=== PATIENT | female | born 1940 | race Caucasian/White ===

== ENCOUNTER 2017-05-10 00:29 | Emergency (ER) | payer MEDICARE, OTHER ==
[2017-05-10 01:30] VITALS: BP 158/76
--- NOTE | 2017-05-10 01:42 | EDM.PDOC ---
ED HPI GENERAL MEDICAL PROBLEM - General Chief Complaint: Respiratory Problem Stated Complaint: SOB Time Seen by Provider: 05/10/17 01:41 Source of Information: Reports: Patient History Limitations: Reports: No Limitations - History of Present Illness INITIAL COMMENTS - FREE TEXT/NARRATIVE: 76 years old female patient presented with chief complaint of a cannot take a deep breath. She stated that she is not feeling short of breath but she cannot take deep breath. Denies any chest pain. Has been feeling this way since yesterday. Previous history of pneumonia and asthma. Denies any cough or fever. Denies any wheezing. Denies abdominal pain diarrhea or constipation. No urinary symptom. Denies any pain or swelling in her legs. denies pain Pain Score (Numeric/FACES): 0 - Related Data Allergies Allergy/AdvReac Type Severity Reaction Status Date / Time No Known Allergies Allergy Verified 05/10/17 01:21 Home Meds: Home Meds Insulin Glarg,Human.Rec.Analog [Lantus Solostar] 20 units SQ ACBREAKFAST [History] Metoprolol Tartrate [Lopressor] 25 mg PO BID 06/16/14 [History] PARoxetine HCl [Paroxetine HCl] 30 mg PO DAILY 06/16/14 [History] Simvastatin 20 mg PO BEDTIME 06/16/14 [History] metFORMIN [Glucophage] 1,000 mg PO BID 06/16/14 [History] Insulin Aspart [Novolog Flexpen] 8 units SUBCUT BEDTIME 11/27/15 [History] Allopurinol [Zyloprim] 50 mg PO DAILY 05/10/17 [History] Past Medical History HEENT History: Reports: Impaired Vision Cardiovascular History: Reports: Heart Murmur, High Cholesterol, Hypertension, SOB on Exertion Respiratory History: Reports: Asthma, Bronchitis, Recurrent Gastrointestinal History: Reports: Colon Polyp, Diverticulosis Other Gastrointestinal History: Last BM - 03/14/16 Genitourinary History: Reports: 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: Musculoskeletal History: Reports: Fracture, Osteoarthritis, Other (See Below) Other Musculoskeletal History: tibal fracture, screws placed Neurological History: Reports: Concussion Psychiatric History: Reports: Anxiety Endocrine/Metabolic History: Reports: Diabetes, Type I Oncologic (Cancer) History: Reports: Breast - Infectious Disease History Infectious Disease History: Reports: Chicken Pox - Past Surgical History HEENT Surgical History: Reports: Other (See Below) Other HEENT Surgeries/Procedures: dentures Female Surgical History: Reports: Breast Biopsy, Mastectomy Social & Family History - Family History Cardiac: Reports: Heart Failure - Tobacco Use Smoking Status *Q: Former Smoker Years of Tobacco use: 28 Packs/Tins Daily: 1 Used Tobacco, but Quit: Yes Month Tobacco Last Used: March 1988 Second Hand Smoke Exposure: No - Caffeine Use Caffeine Use: Reports: Coffee - Alcohol Use Days Per Week of Alcohol Use: 0 Number of Drinks Per Day: 1 Total Drinks Per Week: 0 - Recreational Drug Use Recreational Drug Use: No ED ROS GENERAL - Review of Systems Review Of Systems: ROS reveals no pertinent complaints other than HPI. ED EXAM, GENERAL - Physical Exam Exam: See Below Exam Limited By: No Limitations General Appearance: Alert, WD/WN, No Apparent Distress Ear Exam: Bilateral Ear: Auricle Normal, Canal Normal, TM normal Head: Atraumatic, Normocephalic Neck: Normal Inspection, Supple, Non-Tender, Full Range of Motion Respiratory/Chest: No Respiratory Distress, Lungs Clear, Normal Breath Sounds, No Accessory Muscle Use, Chest Non-Tender. No: Decreased Breath Sounds, Crackles, Rales, Rhonchi, Wheezing, Stridor, Retractions, Prolonged Expiration Cardiovascular: Normal Peripheral Pulses, Regular Rate, Rhythm, No Edema, No Gallop, No JVD, No Murmur, No Rub GI/Abdominal: Normal Bowel Sounds, Soft, Non-Tender, No Organomegaly, No Distention, No Abnormal Bruit, No Mass Back Exam: Normal Inspection, Full Range of Motion, NT Extremities: Normal Inspection, Normal Range of Motion, Non-Tender, Normal Capillary Refill, No Pedal Edema Neurological: Alert, Oriented, CN II-XII Intact, Normal Cognition, Normal Gait, Normal Reflexes, No Motor/Sensory Deficits Psychiatric: Normal Affect, Normal Mood Skin Exam: Warm, Dry, Intact, Normal Color, No Rash Course - Vital Signs Last Recorded V/S: Last Vital Signs Temp 36.1 C 05/10/17 01:28 Pulse 81 05/10/17 01:28 Resp 20 05/10/17 01:28 BP 158/76 H 05/10/17 01:28 Pulse Ox 97 05/10/17 01:28 - Orders/Labs/Meds Orders: Active Orders 24 hr Category Date Time Status Chest 2V [CR] Urgent Exams 05/10/17 01:52 Taken Labs: Laboratory Tests 05/10/17 05/10/17 Range/Units 02:00 02:00 WBC 5.8 (4.5-11.0) K/uL RBC 3.33 (3.30-5.50) M/uL Hgb 10.5 L (12.0-15.0) g/dL Hct 31.1 L (36.0-48.0) % MCV 93 (80-98) fL MCH 32 H (27-31) pg MCHC 34 (32-36) % Plt Count 158 (150-400) K/uL Neut % (Auto) 67 H (36-66) % Lymph % (Auto) 20 L (24-44) % [place] % (Auto) 10 H (2-6) % Eos % (Auto) 2 (2-4) % Baso % (Auto) 1 (0-1) % Sodium 139 L (140-148) mmol/L Potassium 3.6 (3.6-5.2) mmol/L Chloride 101 (100-108) mmol/L Carbon Dioxide 28 (21-32) mmol/L Anion Gap 13.6 (5.0-14.0) mmol/L BUN 34 H (7-18) mg/dL Creatinine 1.2 H (0.6-1.0) mg/dL Est Cr Clr Drug Dosing 34.02 mL/min Estimated GFR (MDRD) 44 L (>60) Glucose 175 H (74-106) mg/dL Calcium 9.3 (8.5-10.1) mg/dL Troponin I 0.034 (0.000-0.056) ng/mL Meds: Medications Discontinued Medications Generic Name Dose Route Start Last Admin Trade Name Freq PRN Reason Stop Dose Admin Lorazepam 0.5 mg 05/10/17 01:53 05/10/17 02:06 Ativan IM 05/10/17 01:54 0.5 mg ONETIME ONE Administration - Re-Assessments/Exams Free Text/Narrative Re-Assessment/Exam: 05/10/17 01:59 Patient was seen and examined shortly after arrival. Stable. Exam is completely unremarkable. Possible anxiety. Was given 0.5 mg IM Ativan. Lab and imaging reviewed with the patient. No significant abnormalities. Symptom markedly improved after 25 mg of IM Ativan. He stated that she feels fantastic. Her warts. Symptom completely resolved. Feels this is most likely anxiety. Patient stable for discharge. 05/10/17 03:00 Departure - Departure Time of Disposition: 03:01 Disposition: Home, Self-Care 01 Condition: Good Clinical Impression: Anxiety - Discharge Information Referrals: John Meza MD [Primary Care Provider] - Forms: ED Department Discharge Additional Instructions: Continue home meds Come back symptom motion - My Orders Last 24 Hours: My Active Orders 05/10/17 01:52 Chest 2V [CR] Urgent - Assessment/Plan Last 24 Hours: My Active Orders 05/10/17 01:52 Chest 2V [CR] Urgent Plan: Continue home meds Come back symptom motion
[2017-05-10] MEDS ORDERED: LORazepam 2 MG/ML MDV IM ONE (01:53)
--- NOTE | 2017-05-10 09:10 | CR ---
Chest 2V HISTORY: Shortness of breath. COMPARISON: 03/15/2016. FINDINGS: Hyperinflation. Cardiac size is normal. No acute infiltrates. Old right-sided rib injuries. No effusions or acute congestive change.
== END 2017-05-10 03:12 | disposition home or self-care (01) ==
LOC: JP.ED 00:29
DX: F41.9 Anxiety disorder, unspecified (principal); I10 Essential (primary) hypertension; E10.9 Type 1 diabetes mellitus without complications; J45.909 Unspecified asthma, uncomplicated; Z87.01 Personal history of pneumonia (recurrent); Z79.899 Other long term (current) drug therapy
CPT/HCPCS: 36415; 71020; 80048; 84484; 85025; 96372; 99285; J2060; 99283

== ENCOUNTER 2017-12-01 14:21 | Emergency (ER) | payer MEDICARE, OTHER ==
--- NOTE | 2017-12-01 14:56 | EDM.PDOC ---
ED HPI GENERAL MEDICAL PROBLEM - General Chief Complaint: Respiratory Problem Stated Complaint: RESPIRATORY/SOB Time Seen by Provider: 12/01/17 15:45 Source of Information: Reports: Patient, Family, Old Records, RN History Limitations: Reports: No Limitations - History of Present Illness INITIAL COMMENTS - FREE TEXT/NARRATIVE: 77 yo female with no CAD hx presents with SOB and upper abdominal pain that began earlier today. Most of these sx's are better, but she still has some SOB. No recent calf pain or fever. Has a hx of pneumonia and this feels like that. Not coughing. Has nausea and vomiting. No bleeding. Here with family from home. The pain sx's she reports today have been coming and going for several days, worse last night, this morning, and again at noon today. Pain mostly gone on arrival. 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) - Related Data Allergies Allergy/AdvReac Type Severity Reaction Status Date / Time No Known Allergies Allergy Verified 05/10/17 01:21 Home Meds: Home Meds Insulin Glarg,Human.Rec.Analog [Lantus Solostar] 20 units SQ ACBREAKFAST [History] Metoprolol Tartrate [Lopressor] 25 mg PO BID 06/16/14 [History] PARoxetine HCl [Paroxetine HCl] 30 mg PO DAILY 06/16/14 [History] Simvastatin 20 mg PO BEDTIME 06/16/14 [History] metFORMIN [Glucophage] 1,000 mg PO BID 06/16/14 [History] Insulin Aspart [Novolog Flexpen] 8 units SUBCUT BEDTIME 11/27/15 [History] Allopurinol [Zyloprim] 200 mg PO DAILY 05/10/17 [History] oxyCODONE 5 mg PO ASDIRECTED PRN 12/01/17 [History] Past Medical History HEENT History: Reports: Impaired Vision Cardiovascular History: Reports: Heart Murmur, High Cholesterol, Hypertension, SOB on Exertion Respiratory History: Reports: Asthma, Bronchitis, Recurrent Gastrointestinal History: Reports: Colon Polyp, Diverticulosis Other Gastrointestinal History: Last BM - 03/14/16 Genitourinary History: 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: Musculoskeletal History: Reports: Fracture, Osteoarthritis, Other (See Below) Other Musculoskeletal History: tibal fracture, screws placed Neurological History: Reports: Concussion Psychiatric History: Reports: Anxiety Endocrine/Metabolic History: Reports: Diabetes, Type I Oncologic (Cancer) History: Reports: Breast - Infectious Disease History Infectious Disease History: Reports: Chicken Pox - Past Surgical History HEENT Surgical History: Reports: Other (See Below) Other HEENT Surgeries/Procedures: dentures Female Surgical History: Reports: Breast Biopsy, Mastectomy Social & Family History - Family History Cardiac: Reports: Heart Failure - Tobacco Use Smoking Status *Q: Never Smoker Years of Tobacco use: 28 Packs/Tins Daily: 1 Used Tobacco, but Quit: Yes Month/Year Tobacco Last Used: March 1988 Second Hand Smoke Exposure: No - Caffeine Use Caffeine Use: Reports: Coffee - Alcohol Use Days Per Week of Alcohol Use: 0 Number of Drinks Per Day: 1 Total Drinks Per Week: 0 - Recreational Drug Use Recreational Drug Use: No ED ROS GENERAL - Review of Systems Review Of Systems: See Below Constitutional: Reports: No Symptoms HEENT: Reports: No Symptoms Respiratory: Reports: Shortness of Breath. Denies: Wheezing, Pleuritic Chest Pain, Cough, Sputum Cardiovascular: Reports: Chest Pain GI/Abdominal: Reports: Abdominal Pain (upper abdomen), Diarrhea, Nausea, Vomiting. Denies: Black Stool, Bloody Stool, Constipation, Distension : Reports: No Symptoms Musculoskeletal: Reports: No Symptoms Skin: Reports: No Symptoms Neurological: Reports: No Symptoms Psychiatric: Reports: No Symptoms ED EXAM, GENERAL - Physical Exam Exam: See Below Exam Limited By: No Limitations General Appearance: Alert, WD/WN, No Apparent Distress Eye Exam: Bilateral Eye: Normal Inspection Ears: Normal External Exam, Normal Canal, Hearing Grossly Normal, Normal TMs Ear Exam: Bilateral Ear: Auricle Normal, Canal Normal, TM normal Nose: Normal Inspection, Normal Mucosa, No Blood Throat/Mouth: Normal Inspection, Normal Lips, Normal Oropharynx, Normal Voice, No Airway Compromise Head: Atraumatic, Normocephalic Neck: Normal Inspection, Supple Respiratory/Chest: No Respiratory Distress, Lungs Clear, Normal Breath Sounds, No Accessory Muscle Use Cardiovascular: Regular Rate, Rhythm, No Edema GI/Abdominal: Normal Bowel Sounds, Soft, Non-Tender, No Distention Back Exam: Normal Inspection. No: CVA Tenderness (R), CVA Tenderness (L) Extremities: Normal Inspection, Normal Range of Motion, Non-Tender, No Pedal Edema Neurological: Alert, Oriented, CN II-XII Intact, Normal Cognition, No Motor/ Sensory Deficits Psychiatric: Normal Affect, Normal Mood Skin Exam: Warm, Dry, Intact, Normal Color, No Rash Lymphatic: No Adenopathy EKG INTERPRETATION EKG Date: 12/01/17 Time: 14:45 Rhythm: NSR Rate (Beats/Min): 122 [place]: Normal P-Wave: Present QRS: Normal ST-T: Depressed (multiple leads) QT: Normal Comparison: NA - No Prior EKG (abnormal EKG) Course - Vital Signs Text/Narrative:: 2nd IV ordered for an increase in HR and CP: Q's in V1-V3, deeper ST depression in inf leads and ant leads Dr. Gates recontacted to update change in patient's condition. Will change mode of transfer to air. Last Recorded V/S: Last Vital Signs Temp 36.2 C 12/01/17 16:57 Pulse 105 H 12/01/17 17:01 Resp 22 H 12/01/17 16:57 BP 129/72 12/01/17 17:01 Pulse Ox 96 12/01/17 16:57 - Orders/Labs/Meds Orders: Active Orders 24 hr Category Date Time Status Cardiac Monitoring [RC] .As Directed Care 12/01/17 15:03 Active EKG Documentation Completion [RC] ASDIRECTED Care 12/01/17 14:33 Active EKG Documentation Completion [RC] ASDIRECTED Care 12/01/17 16:38 Active UA W/MICROSCOPIC [URIN] Stat Lab 12/01/17 15:01 Ordered Heparin Sodium/D5W [Heparin 25,000 Units in D5W 500 ML] Med 12/01/17 16:30 Active 25,000 units in 500 ml IV TITRATE Metoprolol Tartrate [Lopressor] Med 12/01/17 17:06 Once 5 mg IVPUSH ONETIME ONE Nitroglycerin/D5W [Nitroglycerin 25 MG/D5W 250 ML] Med 12/01/17 16:45 Active 25 mg in 250 ml IV TITRATE EKG 12 Lead [EK] Routine Ther 12/01/17 14:33 Ordered EKG 12 Lead [EK] Routine Ther 12/01/17 16:38 Ordered Medication Orders Heparin Sodium/Dextrose (Heparin 25,000 Units In D5w 500 Ml) 25,000 units in 500 mls @ 18 mls/hr IV TITRATE BAO Last Admin: 12/01/17 17:04 Dose: 900 units/hr, 18 mls/hr Nitroglycerin/Dextrose (Nitroglycerin 25 Mg/D5w 250 Ml) 25 mg in 250 mls @ 6 mls/hr IV TITRATE BAO; Protocol Last Admin: 12/01/17 16:39 Dose: 10 mcg/min, 6 mls/hr Labs: Laboratory Tests 12/01/17 12/01/17 12/01/17 Range/Units 15:02 15:02 15:02 WBC 8.7 (4.5-11.0) K/uL RBC 3.92 (3.30-5.50) M/uL Hgb 12.6 D (12.0-15.0) g/dL Hct 36.8 (36.0-48.0) % MCV 94 (80-98) fL MCH 32 H (27-31) pg MCHC 34 (32-36) % Plt Count 209 (150-400) K/uL D-Dimer, Quantitative 340 (0.0-400.0) ng/mL Sodium 138 L (140-148) mmol/L Potassium 4.4 (3.6-5.2) mmol/L Chloride 100 (100-108) mmol/L Carbon Dioxide 20 L (21-32) mmol/L Anion Gap 22.4 H (5.0-14.0) mmol/L BUN 19 H (7-18) mg/dL Creatinine 1.3 H (0.6-1.0) mg/dL Est Cr Clr Drug Dosing 31.61 mL/min Estimated GFR (MDRD) 40 L (>60) Glucose 266 H (74-106) mg/dL Calcium 9.4 (8.5-10.1) mg/dL Total Bilirubin 0.7 D (0.2-1.0) mg/dL AST 33 (15-37) U/L ALT 40 (12-78) U/L Alkaline Phosphatase 66 (46-116) U/L Troponin I 1.248 H* (0.000-0.056) ng/mL NT-Pro-B Natriuret Pep (5-450) pg/mL Total Protein 6.8 (6.4-8.2) g/dL Albumin 3.5 (3.4-5.0) g/dL Globulin 3.3 (2.3-3.5) g/dL Albumin/Globulin Ratio 1.1 L (1.2-2.2) 12/01/17 Range/Units 16:25 WBC (4.5-11.0) K/uL RBC (3.30-5.50) M/uL Hgb (12.0-15.0) g/dL Hct (36.0-48.0) % MCV (80-98) fL MCH (27-31) pg MCHC (32-36) % Plt Count (150-400) K/uL D-Dimer, Quantitative (0.0-400.0) ng/mL Sodium (140-148) mmol/L Potassium (3.6-5.2) mmol/L Chloride (100-108) mmol/L Carbon Dioxide (21-32) mmol/L Anion Gap (5.0-14.0) mmol/L BUN (7-18) mg/dL Creatinine (0.6-1.0) mg/dL Est Cr Clr Drug Dosing mL/min Estimated GFR (MDRD) (>60) Glucose (74-106) mg/dL Calcium (8.5-10.1) mg/dL Total Bilirubin (0.2-1.0) mg/dL AST (15-37) U/L ALT (12-78) U/L Alkaline Phosphatase (46-116) U/L Troponin I (0.000-0.056) ng/mL NT-Pro-B Natriuret Pep 5396 H (5-450) pg/mL Total Protein (6.4-8.2) g/dL Albumin (3.4-5.0) g/dL Globulin (2.3-3.5) g/dL Albumin/Globulin Ratio (1.2-2.2) Meds: Medications Generic Name Dose Route Start Last Admin Trade Name Freq PRN Reason Stop Dose Admin Heparin Sodium/Dextrose 25,000 units in 500 mls @ 18 mls/hr 12/01/17 16:30 17:04 Heparin 25,000 Units In D5w 500 Ml IV 900 units/hr TITRATE BAO 18 mls/hr Administration 900 UNITS/HR Nitroglycerin/Dextrose 25 mg in 250 mls @ 6 mls/hr 12/01/17 16:45 12/01/17 16 :39 Nitroglycerin 25 Mg/D5w 250 Ml IV 10 mcg/min TITRATE BAO 6 mls/hr Administration Protocol 10 MCG/MIN Discontinued Medications Generic Name Dose Route Start Last Admin Trade Name Risa PRN Reason Stop Dose Admin Aspirin 324 mg 12/01/17 16:09 12/01/17 16:16 Aspirin PO 12/01/17 16:10 324 mg ONETIME ONE Administration Clopidogrel Bisulfate 600 mg 12/01/17 16:20 12/01/17 16:28 Plavix PO 12/01/17 16:21 600 mg ONETIME ONE Administration Heparin Sodium (Porcine) 4,000 units 12/01/17 16:21 12/01/17 16:33 Heparin Sodium IVPUSH 12/01/17 16:22 4,000 units ONETIME ONE Administration Lactated Ringer's 1,000 mls @ 1,000 mls/hr 12/01/17 15:01 12/01/17 15:21 Ringers, Lactated IV 12/01/17 16:00 1,000 mls/hr BOLUS ONE Administration Lorazepam 0.5 mg 12/01/17 16:30 12/01/17 16:36 Ativan IVPUSH 12/01/17 16:31 0.5 mg ONETIME ONE Administration Metoclopramide HCl 10 mg 12/01/17 15:01 12/01/17 15:24 Reglan IVPUSH 12/01/17 15:02 10 mg ONETIME ONE Administration Metoprolol Tartrate 25 mg 12/01/17 16:20 12/01/17 16:28 Lopressor PO 12/01/17 16:21 25 mg ONETIME ONE Administration Metoprolol Tartrate 5 mg 12/01/17 16:46 12/01/17 16:52 Lopressor IVPUSH 12/01/17 16:47 5 mg ONETIME ONE Administration Metoprolol Tartrate 5 mg 12/01/17 16:57 12/01/17 17:01 Lopressor IVPUSH 12/01/17 16:58 5 mg ONETIME ONE Administration Morphine Sulfate 2 mg 12/01/17 15:01 12/01/17 15:26 Morphine IVPUSH 12/01/17 15:02 2 mg ONETIME ONE Administration Morphine Sulfate 4 mg 12/01/17 16:38 12/01/17 16:41 Morphine IVPUSH 12/01/17 16:39 4 mg ONETIME ONE Administration Ondansetron HCl Confirm 12/01/17 16:43 Zofran Administered 12/01/17 16:44 Dose 4 [facility] - Radiology Interpretation Free Text/Narrative:: CXR-RLL infiltrate, ? pneumonia vs other Departure - Departure Time of Disposition: 17:10 Disposition: DC/Tfer to Acute Hospital 02 Condition: Fair, Critical Clinical Impression: Elevated blood sugar, Elevated troponin I level, Cardiac ischemia - Discharge Information Referrals: John Meza MD [Primary Care Provider] - Forms: ED Department Discharge Care Plan Goals: Critical care time 40 min. - My Orders Last 24 Hours: My Active Orders 12/01/17 14:33 EKG Documentation Completion [RC] ASDIRECTED EKG 12 Lead [EK] Routine 12/01/17 15:01 UA W/MICROSCOPIC [URIN] Stat 12/01/17 15:03 Cardiac Monitoring [RC] .As Directed 12/01/17 16:30 Heparin Sodium/D5W [Heparin 25,000 Units in D5W 500 ML] 25,000 units in 500 ml IV TITRATE 12/01/17 16:38 EKG Documentation Completion [RC] ASDIRECTED EKG 12 Lead [EK] Routine 12/01/17 16:45 Nitroglycerin/D5W [Nitroglycerin 25 MG/D5W 250 ML] 25 mg in 250 ml IV TITRATE 12/01/17 17:06 Metoprolol Tartrate [Lopressor] 5 mg IVPUSH ONETIME ONE - Assessment/Plan Last 24 Hours: My Active Orders 12/01/17 14:33 EKG Documentation Completion [RC] ASDIRECTED EKG 12 Lead [EK] Routine 12/01/17 15:01 UA W/MICROSCOPIC [URIN] Stat 12/01/17 15:03 Cardiac Monitoring [RC] .As Directed 12/01/17 16:30 Heparin Sodium/D5W [Heparin 25,000 Units in D5W 500 ML] 25,000 units in 500 ml IV TITRATE 12/01/17 16:38 EKG Documentation Completion [RC] ASDIRECTED EKG 12 Lead [EK] Routine 12/01/17 16:45 Nitroglycerin/D5W [Nitroglycerin 25 MG/D5W 250 ML] 25 mg in 250 ml IV TITRATE 12/01/17 17:06 Metoprolol Tartrate [Lopressor] 5 mg IVPUSH ONETIME ONE
[2017-12-01] MEDS ORDERED: Metoclopramide 10 MG/2 ML SDV IVPUSH ONE (15:01)
[2017-12-01] MEDS ORDERED: Morphine 2 MG/ML Syringe IVPUSH ONE (15:01)
[2017-12-01] MEDS ORDERED: Lactated Ringers 1,000 ML IV ONE (15:01)
--- NOTE | 2017-12-01 15:27 | CR ---
CHEST: 2 view CLINICAL HISTORY:Shortness of breath COMPARISON:10 May 2017 FINDINGS: Heart size and pulmonary vascularity are normal. There are atherosclerotic changes in the aorta.. Lungs are hyperaerated. There is some patchy density in the right lower lobe. This is suspect for pneumonic infiltrate superimposed over chronic lung changes. IMPRESSION: Changes of COPD Superimposed right lower lobe density is suspect for pneumonic infiltrate. Follow-up recommended untxavier espinosa clear
[2017-12-01] MEDS ORDERED: Aspirin 81 MG Tab.Chew PO ONE (16:09)
[2017-12-01] MEDS ORDERED: Clopidogrel 75 MG Tab PO ONE (16:20)
[2017-12-01] MEDS ORDERED: Metoprolol Tartrate 25 MG Tab PO ONE (16:20)
[2017-12-01] MEDS ORDERED: Heparin Sodium 5,000 Units/ML Vial IVPUSH ONE (16:21)
[2017-12-01] MEDS ORDERED: LORazepam 2 MG/ML SDV IVPUSH ONE (16:30)
[2017-12-01] MEDS ORDERED: Heparin Sodium/D5W 25,000 UNITS/500 ML BAG IV SCH (16:30)
[2017-12-01] MEDS ORDERED: Morphine 4 MG/ML Syringe IVPUSH ONE (16:38)
[2017-12-01] MEDS ORDERED: Ondansetron 4 MG/2 ML SDV ONE (16:43)
[2017-12-01] MEDS ORDERED: Nitroglycerin/D5W 25 MG/250 ML BOTTLE IV SCH (16:45)
[2017-12-01] MEDS ORDERED: Metoprolol Tartrate 5 MG/5 ML SDV IVPUSH ONE ×3 (16:46→17:06)
[2017-12-01 17:02] VITALS: BP 129/72
[2017-12-01] MEDS ORDERED: Ondansetron 4 MG/2 ML SDV IVPUSH ONE (17:15)
== END 2017-12-01 17:30 ==
LOC: JP.ED 14:21
DX: E10.9 Type 1 diabetes mellitus without complications (principal); R79.89 Other specified abnormal findings of blood chemistry; I25.9 Chronic ischemic heart disease, unspecified; R06.02 Shortness of breath; I10 Essential (primary) hypertension; E78.00 Pure hypercholesterolemia, unspecified; Z79.4 Long term (current) use of insulin; Z79.84 Long term (current) use of oral hypoglycemic drugs; F17.210 Nicotine dependence, cigarettes, uncomplicated
CPT/HCPCS: 36415; 71046; 80053; 83880; 84484; 85027; 85379; 93005; 96361; 96374; 96375; 99285; 99291; A9270; J1644; J2060; J2270; J2405; J2765; J7120; 93010; J3490

== ENCOUNTER 2019-10-03 10:24 | Emergency (ER) | payer MEDICARE, OTHER ==
[2019-10-03 10:30] VITALS: BP 188/75; PULSE 102
--- NOTE | 2019-10-03 10:38 | EDM.PDOC ---
ED HPI GENERAL MEDICAL PROBLEM - General Chief Complaint: General Stated Complaint: FALL VIA [place]TH Time Seen by Provider: 10/03/19 10:36 Source of Information: Reports: Patient, EMS History Limitations: Reports: No Limitations, Other (Expresses that she does not want to be here and did not want to be transported by ambulance. Apparently neighbors called for ambulance.) - History of Present Illness Onset: Today Location: Reports: Head (R), Chest (R) - Related Data Allergies Allergy/AdvReac Type Severity Reaction Status Date / Time tape Allergy Rash Uncoded 06/10/19 10:24 Home Meds: Home Meds Insulin Glarg,Human.Rec.Analog [Lantus Solostar] 20 units SQ ACBREAKFAST [History] PARoxetine HCl [Paroxetine HCl] 30 mg PO DAILY 06/16/14 [History] metFORMIN [Glucophage] 1,000 mg PO BID 06/16/14 [History] Anastrozole [Arimidex] 1 mg PO DAILY 05/30/19 [History] Aspirin 81 mg PO DAILY 05/30/19 [History] Insulin Aspart [NovoLOG] 3 units SQ TIDAC 05/30/19 [History] allopurinoL [Zyloprim] 200 mg PO DAILY 05/30/19 [History] atorvaSTATin Calcium [Atorvastatin Calcium] 40 mg PO ACDINNER 05/30/19 [History] carvediloL [Carvedilol] 12.5 mg SQ BIDMEALS 05/30/19 [History] lisinopriL [Lisinopril] 10 mg PO DAILY 05/30/19 [History] Cholecalciferol (Vitamin D3) [Vitamin D3] 2,000 unit PO ASDIRECTED 06/10/19 [ History] Cholecalciferol (Vitamin D3) [Vitamin D] 2,000 unit PO DAILY 06/12/19 [History] Nitroglycerin [Nitrostat] 0.4 mg SL ASDIRECTED 06/12/19 [History] Past Medical History HEENT History: Reports: Impaired Vision Other HEENT History: wears glasses Cardiovascular History: Reports: Heart Murmur, High Cholesterol, Hypertension, [place], SOB on Exertion Respiratory History: Reports: Asthma, Bronchitis, Recurrent Gastrointestinal History: Reports: Chronic Diarrhea, Colon Polyp, Diverticulosis Other Gastrointestinal History: Last BM - 03/14/16 Genitourinary History: Reports: None 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: Musculoskeletal History: Reports: Fracture, Osteoarthritis, Other (See Below) Other Musculoskeletal History: tibal fracture, screws placed Neurological History: Reports: Concussion Psychiatric History: Reports: Anxiety Endocrine/Metabolic History: Reports: Diabetes, Type I Hematologic History: Reports: Blood Transfusion(s) Oncologic (Cancer) History: Reports: Breast - Infectious Disease History Infectious Disease History: Reports: Chicken Pox, Measles, Mumps, Rubella - Past Surgical History HEENT Surgical History: Reports: Other (See Below) Other HEENT Surgeries/Procedures: dentures Cardiovascular Surgical History: Reports: None Respiratory Surgical History: Reports: None GI Surgical History: Reports: Appendectomy, Colonoscopy, Polypectomy Female Surgical History: Reports: Breast Biopsy, Mastectomy Endocrine Surgical History: Reports: None Neurological Surgical History: Reports: None Musculoskeletal Surgical History: Reports: None Oncologic Surgical History: Reports: Mastectomy Dermatological Surgical History: Reports: None Social & Family History - Family History Cardiac: Reports: Heart Failure - Tobacco Use Smoking Status *Q: Never Smoker - Caffeine Use Caffeine Use: Reports: Coffee - Recreational Drug Use Recreational Drug Use: No ED ROS GENERAL - Review of Systems Review Of Systems: See Below Constitutional: Denies: Fever, Malaise HEENT: Reports: No Symptoms Respiratory: Denies: Shortness of Breath Cardiovascular: Reports: Other (R Chest wall pain). Denies: Chest Pain GI/Abdominal: Denies: Abdominal Pain Musculoskeletal: Denies: Neck Pain Skin: Reports: Bruising (Right temporal area) Neurological: Reports: Headache. Denies: Confusion ED EXAM, GENERAL - Physical Exam Exam: See Below Exam Limited By: No Limitations General Appearance: Alert Nose: Normal Inspection Throat/Mouth: Normal Inspection Head: Other (Large blue/green ecchymotic area right temporal) Neck: Normal Inspection, Supple, Non-Tender Respiratory/Chest: Other (No visible ecchymosis on the right chest wall and breath sounds are equal but patient complains of pain with inspiration on the right side) Cardiovascular: Normal Peripheral Pulses, Regular Rate, Rhythm GI/Abdominal: Soft, Non-Tender Back Exam: Full Range of Motion Extremities: Normal Inspection Neurological: Alert, Oriented Psychiatric: Normal Affect, Normal Mood Skin Exam: Warm, Dry Course - Vital Signs Text/Narrative:: She received only Tylenol here in the emergency department. She feels comfortable going back home. She does live in a facility where there are multiple other people around her to keep an eye on her [id number] is at bedside and is comfortable with the patient being discharged. CT and chest x- ray show no evidence of skin injury. Last Recorded V/S: Last Vital Signs Temp 36.7 C 10/03/19 10:27 Pulse 102 H 10/03/19 10:27 Resp 16 10/03/19 10:27 BP 188/75 H 10/03/19 10:27 Pulse Ox 98 10/03/19 10:27 - Orders/Labs/Meds Meds: Medications Discontinued Medications Generic Name Dose Route Start Last Admin Trade Name Freq PRN Reason Stop Dose Admin Acetaminophen 650 mg 10/03/19 12:36 Tylenol PO 10/03/19 12:37 NOW ONE Departure - Departure Time of Disposition: 12:45 Disposition: Home, Self-Care 01 Condition: Good Clinical Impression: Fall, Facial hematoma - Discharge Information Instructions: Head Injury, Adult, [id number], Fall Prevention in Hospitals, Adult Referrals: John Meza MD [Primary Care Provider] - Forms: ED Department Discharge Care Plan Goals: Okay to take Tylenol for pain Sepsis Event Note - Evaluation Sepsis Screening Result: No Definite Risk - Focused Exam Vital Signs: Vital Signs Temp Pulse Resp BP Pulse Ox 10/03/19 10:27 36.7 C 102 H 16 188/75 H 98 10/03/19 10:26 36.7 C 102 H 16 188/75 H 98 Date Exam was Performed: 10/03/19 Time Exam was Performed: 12:43
--- NOTE | 2019-10-03 11:57 | CRLCT ---
INDICATION: Fall. Right temporal trauma. TECHNIQUE: CT of the head without contrast. Coronal and sagittal reformats. Bone and soft tissue algorithms. COMPARISON: No prior studies available for comparison at this institution. FINDINGS: No acute intracranial hemorrhage or extra-axial collection. No evidence of acute cortical infarction. 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 Small old infarct in the right postcentral gyrus. No mass effect or midline shift. Moderate bilateral frontal lobe parenchymal volume loss and generalized loss. Moderate cerebellar parenchymal volume loss. Mild regions of decreased attenuation within the periventricular and subcortical white matter of both cerebral hemispheres most likely reflects chronic microvascular ischemic disease and age related change in this patient. Vascular calcifications within the carotid siphons. Orbital contents are normal. No calvarial fractures. No lytic or sclerotic osseous lesions within the calvarium or skull base. Scalp and other imaged soft tissue structures are normal. Mastoid air cells are clear. Incidental hyperostosis frontalis internus. IMPRESSION: 1. No evidence of acute intracranial abnormality. 2. 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 Small old infarct in the right postcentral gyrus. 3. Moderate bilateral frontal lobe parenchymal volume loss and generalized loss. Moderate cerebellar parenchymal volume loss. Please note that all CT scans at this facility use dose modulation, iterative reconstruction, and/or weight-based dosing when appropriate to reduce radiation dose to as low as reasonably achievable. Dictated by John Fonseca MD @ Oct 03 2019 11:51AM Signed by Dr. John Fonseca @ Oct 03 2019 11:57AM
--- NOTE | 2019-10-03 12:10 | CRLCR ---
INDICATION: Right chest wall pain TECHNIQUE: Chest and right ribs 3 views. COMPARISON: 12/01/2017 FINDINGS: Cardiovascular and mediastinum: Heart size and vasculature are normal in caliber and appearance. Mediastinum is within normal limits. Lungs and pleural spaces: Lungs are clear. No sign of infiltrate or mass. No sign of pleural effusion. No pneumothorax. Bones and soft tissues: Detailed oblique images of the right ribs demonstrate no acute fractures or bone lesions. Multiple chronic right-sided rib fractures are present. IMPRESSION: No sign of acute injury or disease in the chest or right ribs. Multiple old right rib fractures present. Dictated by Berhane Cazares MD @ 10/03/2019 12:09:09 PM Dictated by: Berhane Cazares MD @ 10/03/2019 12:09:40 (Electronically Signed)
[2019-10-03] MEDS: Acetaminophen 325 MG Tab PO ONE (12:45)
== END 2019-10-03 13:34 | disposition home or self-care (01) ==
LOC: JP.ED 10:24
DX: S00.83XA Contusion of other part of head, initial encounter (principal); E11.9 Type 2 diabetes mellitus without complications; Z79.4 Long term (current) use of insulin; I10 Essential (primary) hypertension; I25.2 Old myocardial infarction; Z79.82 Long term (current) use of aspirin; Z79.899 Other long term (current) drug therapy; Z91.048 Other nonmedicinal substance allergy status; W19.XXXA Unspecified fall, initial encounter
CPT/HCPCS: 70450; 71101; 99284; A9270; 99282

== ENCOUNTER 2020-04-20 12:07 | Inpatient (IN) | payer MEDICARE, OTHER ==
[2020-04-20] MEDS ORDERED: HYDROmorphone 0.5 MG/0.5 ML Syringe IVPUSH ONE ×2 (12:09→12:59)
--- NOTE | 2020-04-20 12:17 | EDM.PDOC ---
ED HPI GENERAL MEDICAL PROBLEM - General Chief Complaint: General Stated Complaint: FALL Time Seen by Provider: 04/20/20 12:10 Source of Information: Reports: Patient, EMS, Old Records History Limitations: Reports: No Limitations - History of Present Illness INITIAL COMMENTS - FREE TEXT/NARRATIVE: 79 yo female who lives alone tripped on her slippers just before arrival injuring her R hip and incurring an occipital scalp laceration. There was no LOC, and she denies [place] or dizziness. She thinks she is UTD on tetanus. Here via EMS. Had a sip of water only today, no food. 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 (see below) (none) Right Hip Pain Score (Numeric/FACES): 2 - Related Data Allergies Allergy/AdvReac Type Severity Reaction Status Date / Time tape Allergy Rash Uncoded 06/10/19 10:24 Home Meds: Home Meds Insulin Glarg,Human.Rec.Analog [Lantus Solostar] 20 units SQ ACBREAKFAST 06/16/14 [History] PARoxetine HCl [Paroxetine HCl] 30 mg PO DAILY 06/16/14 [History] metFORMIN [Glucophage] 1,000 mg PO BID 06/16/14 [History] Anastrozole [Arimidex] 1 mg PO DAILY 05/30/19 [History] Aspirin 81 mg PO DAILY 05/30/19 [History] Insulin Aspart [NovoLOG] 3 units SQ TIDAC 05/30/19 [History] allopurinoL [Zyloprim] 200 mg PO DAILY 05/30/19 [History] atorvaSTATin Calcium [Atorvastatin Calcium] 40 mg PO ACDINNER 05/30/19 [History] carvediloL [Carvedilol] 12.5 mg SQ BIDMEALS 05/30/19 [History] lisinopriL [Lisinopril] 10 mg PO DAILY 05/30/19 [History] Cholecalciferol (Vitamin D3) [Vitamin D3] 2,000 unit PO ASDIRECTED 06/10/19 [History] Cholecalciferol (Vitamin D3) [Vitamin D] 2,000 unit PO DAILY 06/12/19 [History] Nitroglycerin [Nitrostat] 0.4 mg SL ASDIRECTED 06/12/19 [History] Past Medical History HEENT History: Reports: Impaired Vision Other HEENT History: wears glasses Cardiovascular History: Reports: Heart Murmur, High Cholesterol, Hypertension, [place], SOB on Exertion Respiratory History: Reports: Asthma, Bronchitis, Recurrent Gastrointestinal History: Reports: Chronic Diarrhea, Colon Polyp, Diverticulosis Other Gastrointestinal History: Last BM - 03/14/16 Genitourinary History: Reports: None 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: Musculoskeletal History: Reports: Fracture, Osteoarthritis, Other (See Below) Other Musculoskeletal History: tibal fracture, screws placed Neurological History: Reports: Concussion Psychiatric History: Reports: Anxiety Endocrine/Metabolic History: Reports: Diabetes, Type I Hematologic History: Reports: Blood Transfusion(s) Oncologic (Cancer) History: Reports: Breast - Infectious Disease History Infectious Disease History: Reports: Chicken Pox, Measles, Mumps, Rubella - Past Surgical History HEENT Surgical History: Reports: Other (See Below) Other HEENT Surgeries/Procedures: dentures Cardiovascular Surgical History: Reports: None Respiratory Surgical History: Reports: None GI Surgical History: Reports: Appendectomy, Colonoscopy, Polypectomy Female Surgical History: Reports: Breast Biopsy, Mastectomy Endocrine Surgical History: Reports: None Neurological Surgical History: Reports: None Musculoskeletal Surgical History: Reports: None Oncologic Surgical History: Reports: Mastectomy Dermatological Surgical History: Reports: None Social & Family History - Family History Cardiac: Reports: Heart Failure - Caffeine Use Caffeine Use: Reports: Coffee ED ROS GENERAL - Review of Systems Review Of Systems: See Below Constitutional: Reports: No Symptoms HEENT: Reports: No Symptoms Respiratory: Reports: No Symptoms Cardiovascular: Reports: No Symptoms Endocrine: Reports: No Symptoms GI/Abdominal: Reports: No Symptoms : Reports: No Symptoms Musculoskeletal: Reports: Joint Pain (R hip) Skin: Reports: Wound (occipital scalp laceration) Neurological: Denies: Confusion, Dizziness, Headache, Seizure, Tingling, Trouble Speaking, Difficulty Walking, Change in Speech Psychiatric: Reports: No Symptoms ED EXAM, GENERAL - Physical Exam Exam: See Below Exam Limited By: No Limitations General Appearance: Alert, WD/WN, No Apparent Distress Eye Exam: Bilateral Eye: Normal Inspection, PERRL Ears: Normal External Exam, Normal Canal, Hearing Grossly Normal, Normal TMs Ear Exam: Bilateral Ear: Auricle Normal, Canal Normal, TM normal Nose: Normal Inspection, No Blood Throat/Mouth: Normal Inspection, Normal Lips, Normal Oropharynx, Normal Voice, No Airway Compromise Head: Normocephalic, Other (occipital hematoma, 0.75 lac at occiput with bleeding) Neck: Normal Inspection, Non-Tender Respiratory/Chest: No Respiratory Distress, Lungs Clear, Normal Breath Sounds, No Accessory Muscle Use Cardiovascular: Regular Rate, Rhythm, No Edema GI/Abdominal: Normal Bowel Sounds, Soft, Non-Tender, No Distention Back Exam: Normal Inspection. No: CVA Tenderness (R), CVA Tenderness (L) Extremities: Normal Inspection, No Pedal Edema, Limited Range of Motion (R hip pain with motion, R leg internally rotated). No: Pedal Edema Neurological: Alert, Oriented, CN II-XII Intact, Normal Cognition, No Motor/Sensory Deficits Psychiatric: Normal Affect, Normal Mood Skin Exam: Warm, Dry, Normal Color, No Rash, Wound/Incision (occipital scalp laceration, no continued bleeding after arrival. ) ED GENERAL MEDICAL PROCEDURES - Laceration/Wound Repair Occipital Head Lac/wound length in cm: 0.7 Appearance: Subcutaneous, Linear, Clean Skin Prep: Saline Exploration/Debridement/Repair: Wound Explored Closed with: [place] # of Sutures: 4 Drain Placement: No Sterile Dressing Applied: Nurse (pressure dressing) Tetanus Status Addressed: Yes Complications: No EKG INTERPRETATION EKG Date: 04/20/20 Time: 13:20 Rhythm: NSR Rate (Beats/Min): 89 [place]: Normal P-Wave: Present QRS: Normal ST-T: Normal QT: Normal Comparison: No Change Course - Vital Signs Text/Narrative:: Dr. Dotson notified @ 1303h Dr. Brewer called @ 1309h - Orders/Labs/Meds Orders: Active Orders 24 hr Category Date Time Status EKG Documentation Completion [RC] ASDIRECTED Care 04/20/20 13:11 Active Reeves Catheter Insertion [Insert Urinary Catheter] [OM. Care 04/20/20 13:00 Ordered PC] Q24H Urinary Catheter Assessment [RC] ASDIRECTED Care 04/20/20 13:00 Active Verify Patient Consent Obtain [RC] ASDIRECTED Care 04/20/20 13:11 Active NPO Now [Nothing per Oral Now Diet] [DIET] Diet 04/20/20 Dinner Active CORONAVIRUS COVID-19 JOSE [MOLEC] Stat Lab 04/20/20 13:30 Received Sodium Chloride 0.9% [Normal Saline] 1,000 ml Med 04/20/20 13:45 Active IV ASDIRECTED Sodium Chloride 0.9% [Saline Flush] Med 04/20/20 12:08 Active 10 ml FLUSH ASDIRECTED PRN Saline Lock Insert [OM.PC] Routine Oth 04/20/20 12:08 Ordered EKG 12 Lead [EK] Routine Ther 04/20/20 13:11 Ordered Medication Orders Sodium Chloride (Normal Saline) 1,000 mls @ 125 mls/hr IV ASDIRECTED BAO Sodium Chloride (Saline Flush) 10 ml FLUSH ASDIRECTED PRN PRN Reason: Keep Vein Open Last Admin: 04/20/20 13:04 Dose: 10 ml Documented by: Admin: 04/20/20 12:23 Dose: 10 ml Documented by: ZENAIDA Labs: Laboratory Tests 04/20/20 04/20/20 Range/Units 13:20 13:20 WBC 5.7 (4.5-11.0) K/uL RBC 2.94 L (3.30-5.50) M/uL Hgb 9.7 L D (12.0-15.0) g/dL Hct 30.3 L (36.0-48.0) % MCV 103 H (80-98) fL MCH 33 H (27-31) pg MCHC 32 (32-36) % Plt Count 153 (150-400) K/uL Sodium 136 L (140-148) mmol/L Potassium 5.4 H (3.6-5.2) mmol/L Chloride 102 (100-108) mmol/L Carbon Dioxide 20 L (21-32) mmol/L Anion Gap 19.4 H (5.0-14.0) mmol/L BUN 31 H D (7-18) mg/dL Creatinine 1.6 H (0.6-1.0) mg/dL Est Cr Clr Drug Dosing TNP Estimated GFR (MDRD) 31 L (>60) Glucose 169 H (74-106) mg/dL Calcium 9.2 (8.5-10.1) mg/dL Meds: Medications Generic Name Dose Route Start Last Admin Trade Name Freflorentino PRN Reason Stop Dose Admin Sodium Chloride 1,000 mls @ 125 mls/hr 04/20/20 13:45 Normal Saline IV ASDIRECTED BAO Sodium Chloride 10 ml 04/20/20 12:08 04/20/20 13:04 Saline Flush FLUSH 10 ml ASDIRECTED PRN Administration Keep Vein Open Discontinued Medications Generic Name Dose Route Start Last Admin Trade Name Freq PRN Reason Stop Dose Admin Bacitracin 1 dose 04/20/20 12:59 04/20/20 13:05 Bacitracin Oint 1 Gm TOP 04/20/20 13:00 1 dose ONETIME ONE Administration Fentanyl Confirm 04/20/20 13:35 Sublimaze Administered 04/20/20 13:36 Dose 100 mcg .ROUTE .STK-MED ONE Hydromorphone HCl 0.25 mg 04/20/20 12:09 04/20/20 12:21 Dilaudid IVPUSH 04/20/20 12:10 0.25 mg ONETIME ONE Administration Hydromorphone HCl 0.5 mg 04/20/20 12:59 04/20/20 13:04 Dilaudid IVPUSH 04/20/20 13:00 0.5 mg ONETIME ONE Administration Cefazolin Sodium/Dextrose 2 gm 50 mls @ 100 mls/hr 04/20/20 13:12 / Premix IV 04/20/20 13:41 ONETIME ONE Midazolam HCl Confirm 04/20/20 13:35 Versed 1 Mg/Ml Administered 04/20/20 13:36 Dose 2 mg .ROUTE .STK-MED ONE Propofol Confirm 04/20/20 13:34 Diprivan 20 Ml Administered 04/20/20 13:35 Dose 200 mg .ROUTE .STK-MED ONE - Radiology Interpretation Free Text/Narrative:: R hip and pelvis X-rays-R intertrochanteric hip fx Departure - Departure Time of Disposition: 13:42 Disposition: Admitted As Inpatient 68 Condition: Fair Clinical Impression: Fracture, intertrochanteric, right femur Qualifiers: Encounter type: initial encounter Fracture type: closed Fracture alignment: nondisplaced Qualified Code(s): S72.144A - Nondisplaced intertrochanteric fracture of right femur, initial encounter for closed fracture Hematoma of occipital surface of head Qualifiers: Encounter type: initial encounter Qualified Code(s): S00.83XA - Contusion of other part of head, initial encounter Occipital scalp laceration Qualifiers: Encounter type: initial encounter Qualified Code(s): S01.01XA - Laceration without foreign body of scalp, initial encounter - Discharge Information Referrals: PCP,None [Primary Care Provider] - Forms: ED Department Discharge - My Orders Last 24 Hours: My Active Orders 04/20/20 12:08 Sodium Chloride 0.9% [Saline Flush] 10 ml FLUSH ASDIRECTED PRN Saline Lock Insert [OM.PC] Routine 04/20/20 13:00 Reeves Catheter Insertion [Insert Urinary Catheter] [OM.PC] Q24H Urinary Catheter Assessment [RC] ASDIRECTED 04/20/20 13:11 EKG Documentation Completion [RC] ASDIRECTED EKG 12 Lead [EK] Routine 04/20/20 13:30 CORONAVIRUS COVID-19 JOSE [MOLEC] Stat 04/20/20 13:45 Sodium Chloride 0.9% [Normal Saline] 1,000 ml IV ASDIRECTED - Assessment/Plan Last 24 Hours: My Active Orders 04/20/20 12:08 Sodium Chloride 0.9% [Saline Flush] 10 ml FLUSH ASDIRECTED PRN Saline Lock Insert [OM.PC] Routine 04/20/20 13:00 Reeves Catheter Insertion [Insert Urinary Catheter] [OM.PC] Q24H Urinary Catheter Assessment [RC] ASDIRECTED 04/20/20 13:11 EKG Documentation Completion [RC] ASDIRECTED EKG 12 Lead [EK] Routine 04/20/20 13:30 CORONAVIRUS COVID-19 JOSE [MOLEC] Stat 04/20/20 13:45 Sodium Chloride 0.9% [Normal Saline] 1,000 ml IV ASDIRECTED
[2020-04-20] MEDS: Sodium Chloride 0.9% 10 ML Syringe FLUSH PRN ×2 (12:23→13:04)
[2020-04-20] MEDS ORDERED: Bacitracin Oint 1 GM U/D Packet TOP ONE (12:59)
--- NOTE | 2020-04-20 13:02 | CR ---
Hip Min 2V or 3V w Pelvis Rt CLINICAL HISTORY: Fall FINDINGS: There is a slightly displaced intertrochanteric fracture of the right femur. There is some deformity of the right pubis which is more likely an old healed fracture. This was not seen in 2006. There are degenerative changes in both hips and the lumbar spine IMPRESSION: Intertrochanteric fracture right femur Previous right pubic fracture with callus formation
[2020-04-20] MEDS ORDERED: ceFAZolin 2 GM in Premix Bag 1 BAG IV ONE (13:12)
[2020-04-20] MEDS ORDERED: Propofol 200 MG/20 ML SDV ONE ×2 (13:34→14:00)
[2020-04-20] MEDS ORDERED: Midazolam 1 MG/ML 2 ML SDV ONE (13:35)
[2020-04-20] MEDS ORDERED: fentaNYL 100 MCG/2 ML SDV ONE (13:35)
[2020-04-20] MEDS ORDERED: Sodium Chloride 0.9% 1,000 ML IV SCH (13:45)
[2020-04-20] MEDS ORDERED: Bupivacaine 0.5%/EPINEPHrine 1:200,000 50 ML MDV ONE (13:53)
--- NOTE | 2020-04-20 14:17 | PCM.HP.2 ---
H&P History of Present Illness - General Date of Service: 04/20/20 Admit Problem/Dx: Admission Diagnosis/Problem Admission Diagnosis/Problem Fracture of femur Source of Information: Patient, Family, Provider History Limitations: Reports: No Limitations - History of Present Illness Initial Comments - Free Text/Narative: CC: Sandeep slipped HPI: Marleen presents to the emergency room today with right hip pain after slipping and falling at her apartment building. She reports that as she was approaching the elevator her sandal slipped off and she fell down landing on her right hip and also striking the right side of her head. Initially she did not have much pain but over a short while she developed severe pain in the right hip. This was very sharp and much worse with any sort of movement. Pain was less intense when she laid still. Pain has steadily been getting worse until she did get some pain medication in the emergency room. As long as she lays comfortable now she does not have much pain. No complaints of headache. She did have a small laceration on her forehead which did require some chano. She reports that this was a simple slip and fall and she did not lose consciousness or pass out. She has felt well recently with no fevers, chills, shortness of breath, cough, nausea or abdominal pain. There has been no change in bowel or bladder habits. She has a history of several previous surgeries and has never had difficulty with anesthesia. Functional status has been stable and she does not have any exertional chest pain or dyspnea. Work-up in the emergency room revealed evidence for an intertrochanteric fracture of the right hip. Surgical intervention is planned later in the day. She will be admitted for surgical management. Right Hip Pain Score (Numeric/FACES): 2 - Related Data Allergies/Adverse Reactions: Allergies Allergy/AdvReac Type Severity Reaction Status Date / Time tape Allergy Rash Uncoded 06/10/19 10:24 Home Medications: Home Meds PARoxetine HCl [Paroxetine HCl] 30 mg PO DAILY 06/16/14 [History] metFORMIN [Glucophage] 1,000 mg PO BID 06/16/14 [History] Anastrozole [Arimidex] 1 mg PO DAILY 05/30/19 [History] Aspirin 81 mg PO DAILY 05/30/19 [History] allopurinoL [Zyloprim] 200 mg PO DAILY 05/30/19 [History] atorvaSTATin Calcium [Atorvastatin Calcium] 40 mg PO ACDINNER 05/30/19 [History] carvediloL [Carvedilol] 12.5 mg SQ BIDMEALS 05/30/19 [History] lisinopriL [Lisinopril] 10 mg PO DAILY 05/30/19 [History] Cholecalciferol (Vitamin D3) [Vitamin D3] 2,000 unit PO ASDIRECTED 06/10/19 [History] Cholecalciferol (Vitamin D3) [Vitamin D] 2,000 unit PO DAILY 06/12/19 [History] Nitroglycerin [Nitrostat] 0.4 mg SL ASDIRECTED 06/12/19 [History] Insulin Glargine,Hum.Rec.Anlog [Basaglar Kwikpen U-100] 14 units SUBCUT DAILY 04/20/20 [History] Past Medical History HEENT History: Reports: Impaired Vision Other HEENT History: wears glasses Cardiovascular History: Reports: Heart Murmur, High Cholesterol, Hypertension, [place], SOB on Exertion Respiratory History: Reports: Asthma, Bronchitis, Recurrent Gastrointestinal History: Reports: Chronic Diarrhea, Colon Polyp, Diverticulosis Other Gastrointestinal History: Last BM - 03/14/16 Genitourinary History: Reports: None [employer] History: Reports: Musculoskeletal History: Reports: Fracture, Osteoarthritis, Other (See Below) Other Musculoskeletal History: tibal fracture, screws placed Neurological History: Reports: Concussion Psychiatric History: Reports: Anxiety Endocrine/Metabolic History: Reports: Diabetes, Type I Hematologic History: Reports: Blood Transfusion(s) Oncologic (Cancer) History: Reports: Breast - Infectious Disease History Infectious Disease History: Reports: Chicken Pox, Measles, Mumps, Rubella - Past Surgical History HEENT Surgical History: Reports: Other (See Below) Other HEENT Surgeries/Procedures: dentures Cardiovascular Surgical History: Reports: None Respiratory Surgical History: Reports: None GI Surgical History: Reports: Appendectomy, Colonoscopy, Polypectomy Female Surgical History: Reports: Breast Biopsy, Mastectomy Endocrine Surgical History: Reports: None Neurological Surgical History: Reports: None Musculoskeletal Surgical History: Reports: None Oncologic Surgical History: Reports: Mastectomy Dermatological Surgical History: Reports: None Social & Family History - Family History Cardiac: Reports: Heart Failure - Tobacco Use Smoking Status *Q: Never Smoker - Caffeine Use Caffeine Use: Reports: Coffee - Alcohol Use Alcohol Use History: No H&P Review of Systems - Review of Systems: Review Of Systems: See Below Free Text/Narrative: A complete 12 point review of systems was obtained. Pertinent positives and negatives are noted in the history of present illness. All other systems were reviewed and were negative except as noted. Exam - Exam Exam: See Below - Vital Signs Vital Signs: Last Vital Signs Temp 36.6 C 04/20/20 12:10 Pulse 83 04/20/20 13:07 Resp 16 04/20/20 13:07 BP 154/68 H 04/20/20 13:07 Pulse Ox 99 04/20/20 13:07 Weight: 56.699 kg - Exam Quality Assessment: No: Supplemental Oxygen General: Alert, Oriented, Cooperative. No: Mild Distress HEENT: Conjunctiva Clear, Mucosa Moist & [place] Neck: Supple, Trachea Midline Lungs: Clear to Auscultation, Normal Respiratory Effort Cardiovascular: Regular Rate, Regular Rhythm, Systolic Murmur (Mild at right upper and left upper sternal border, moderate at left lower sternal border) GI/Abdominal Exam: Normal Bowel Sounds, Soft, Non-Tender, No Distention Extremities: No Pedal Edema, Other (Right leg shortened and externally rotated. Mild tenderness to palpation over the right lateral hip. No hematoma of the right hip.). No: Increased Warmth Peripheral Pulses: 2+: Dorsalis Pedis (L), Dorsalis Pedis (R) Skin: Warm, Dry, Other (Healed midline scar across her chest extending onto the upper abdomen) Neuro Extensive - Mental Status: Alert, Oriented x3, Nl Response to Commands Neuro Extensive - Motor, Sensory, Reflexes: No: Dysarthria, Abnormal Motor, Tremor Psychiatric: Alert, Normal Affect - Patient Data Lab Results Last 24 hrs: Laboratory Results - last 24 hr 04/20/20 04/20/20 Range/Units 13:20 13:20 WBC 5.7 (4.5-11.0) K/uL RBC 2.94 L (3.30-5.50) M/uL Hgb 9.7 L D (12.0-15.0) g/dL Hct 30.3 L (36.0-48.0) % MCV 103 H (80-98) fL MCH 33 H (27-31) pg MCHC 32 (32-36) % Plt Count 153 (150-400) K/uL Sodium 136 L (140-148) mmol/L Potassium 5.4 H (3.6-5.2) mmol/L Chloride 102 (100-108) mmol/L Carbon Dioxide 20 L (21-32) mmol/L Anion Gap 19.4 H (5.0-14.0) mmol/L BUN 31 H D (7-18) mg/dL Creatinine 1.6 H (0.6-1.0) mg/dL Est Cr Clr Drug Dosing TNP Estimated GFR (MDRD) 31 L (>60) Glucose 169 H (74-106) mg/dL Calcium 9.2 (8.5-10.1) mg/dL Result Diagrams: 04/20/20 13:20 04/20/20 13:20 Imaging Impressions Last 24 hrs: Right hip [id number] personally reviewed-there is evidence for a mildly displaced intertrochanteric fracture of the right hip. EKG INTERPRETATION EKG Date: 04/20/20 Rhythm: NSR Rate (Beats/Min): 89 [place]: Normal P-Wave: Present QRS: Normal ST-T: Normal QT: Normal Sepsis Event Note - Focused Exam Vital Signs: Vital Signs Temp Pulse Resp BP Pulse Ox 04/20/20 13:07 83 16 154/68 H 99 04/20/20 12:10 36.6 C 76 16 147/60 H 98 *Q Meaningful Use (ADM) - VTE *Q VTE Pharmacological Contraindications *Q: Patient Scheduled Surgery - VTE Risk Assess *Q Each Risk Factor Represents 1 Point: None Total Score 1 Point Risk Factors: 0 Each Risk Factor Represents 2 Points: Malignancy (present or previous) Total Score 2 Point Risk Factors: 2 Each Risk Factor Represents 3 Points: Age 75 Years or Greater Total Score 3 Point Risk Factors: 3 Each Risk Factor Represents 5 Points: Hip, Pelvis or Leg Fracture, Less than 1 month Total Score 5 Point Risk Factors: 5 Venous Thromboembolism Risk Factor Score *Q: 10 - Problem List (1) Fracture, intertrochanteric, right femur SNOMED Code(s): 514349309, [id number] ICD Code: S72.141A - DISPLACED INTERTROCHANTERIC FRACTURE OF RIGHT FEMUR, INIT Status: Acute Current Visit: Yes Qualifiers: Encounter type: initial encounter Fracture type: closed Fracture alignment: nondisplaced Qualified Code(s): S72.144A - Nondisplaced intertrochanteric fracture of right femur, initial encounter for closed fracture (2) Coronary artery disease SNOMED Code(s): 57119626 ICD Code: I25.10 - ATHSCL HEART DISEASE OF [place] CORONARY ARTERY W/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 transplanted heart: [place] heart Associated angina: without angina Qualified Code(s): I25.10 - Atherosclerotic heart disease of [place] coronary artery without angina pectoris (3) Insulin dependent diabetes mellitus SNOMED Code(s): 50211895 ICD Code: [id number] - Status: Chronic Current Visit: Yes (4) Breast cancer SNOMED Code(s): 618693811 ICD Code: C50.919 - MALIGNANT NEOPLASM OF UNSP SITE OF UNSPECIFIED FEMALE BREAST Status: Chronic Current Visit: No Qualifiers: Breast location: areola Laterality: left Qualified Code(s): C50.012 - Malignant neoplasm of nipple and areola, left female breast Problem List Initiated/Reviewed/Updated: Yes Orders Last 24hrs: Active Orders 24 hr Category Date Time Status Patient Status Manage Transfer [TRANSFER] Routine ADT 04/20/20 14:06 Ordered EKG Documentation Completion [RC] ASDIRECTED Care 04/20/20 13:11 Active Reeves Catheter Insertion [Insert Urinary Catheter] [OM. Care 04/20/20 13:00 Ordered PC] Q24H Urinary Catheter Assessment [RC] ASDIRECTED Care 04/20/20 13:00 Active Verify Patient Consent Obtain [RC] ASDIRECTED Care 04/20/20 13:11 Active NPO Now [Nothing per Oral Now Diet] [DIET] Diet 04/20/20 Dinner Active Fluoro Over 1Hr wo Rad [CR] Routine Exams 04/20/20 14:00 Ordered CORONAVIRUS COVID-19 JOSE [MOLEC] Stat Lab 04/20/20 13:30 Received Sodium Chloride 0.9% [Normal Saline] 1,000 ml Med 04/20/20 13:45 Active IV ASDIRECTED Sodium Chloride 0.9% [Saline Flush] Med 04/20/20 12:08 Active 10 ml FLUSH ASDIRECTED PRN Saline Lock Insert [OM.PC] Routine Oth 04/20/20 12:08 Ordered Resuscitation Status Routine Resus Stat 04/20/20 14:08 Ordered EKG 12 Lead [EK] Routine Ther 04/20/20 13:11 Ordered Medication Orders Sodium Chloride (Normal Saline) 1,000 mls @ 125 mls/hr IV ASDIRECTED BAO Sodium Chloride (Saline Flush) 10 ml FLUSH ASDIRECTED PRN PRN Reason: Keep Vein Open Last Admin: 04/20/20 13:04 Dose: 10 ml Documented by: Admin: 04/20/20 12:23 Dose: 10 ml Documented by: ZENAIDA Assessment/Plan Comment:: ASSESSMENT AND PLAN - Right hip fracture-secondary to fall at home. Surgical repair is indicated and is planned for later this afternoon. I believe she has an optimal achievable medical condition. Functional status is acceptable and there are no obvious acute issues or indications for her to not undergo surgery. No history of dif ficulty with anesthesia. -Medically optimized for proposed surgery this afternoon -Surgical consultation with Dr Gregory Dotson -Physical therapy when able postoperatively -higher risk for DVT with hx of cancer, recommend one month of enoxaparin IDDM-sugars well controlled at home. -restart insulin tomorrow -low dose sliding scale tonight CAD-history of bypass surgery in 2018. No recent anginal symptoms. Acceptable functional status. -Continue medical management Hx of breast cancer-on chronic hormonal therapy. -Continue home medications Maintenance issues - - DVT prophylaxis -mechanical today, enoxaparin when able after surgery - GI prophylaxis -not indicated - Nutrition -NPO until after surgery - Reeves catheter -placed in ER CODE STATUS - FULL CODE Admission justification -this patient will be admitted for inpatient services and is medically appropriate meeting medical necessity for inpatient admission as outlined in my documentation. I reasonably expect the patient will require inpatient services that span a period time over 2 midnights. I reasonably expect this patient to be discharged or transferred within 96 hours [facility]. Disposition -I would anticipate discharge for subacute rehab after the hospital stay Primary care physician -Dr. Derrick Brewer M.D. - Mortality Measure Prognosis:: Good
[2020-04-20] MEDS ORDERED: Bacitracin Oint 1 GM U/D Packet ONE (15:58)
[2020-04-20] MEDS ORDERED: Morphine 2 MG/ML SYRINGE SUBCUT PRN (16:07)
[2020-04-20] MEDS ORDERED: traMADol 50 MG Tab PO PRN (16:07)
[2020-04-20] MEDS ORDERED: Magnesium Hydroxide 400 MG/5 ML Susp 30 ML Cup PO PRN ×2 (16:07→16:49)
[2020-04-20] MEDS ORDERED: Ondansetron 4 MG/2 ML SDV IVPUSH PRN (16:07)
[2020-04-20] MEDS ORDERED: Acetaminophen/HYDROcodone 325-5 MG Tab PO PRN (16:07)
[2020-04-20] MEDS ORDERED: Acetaminophen/oxyCODONE 325-5 MG Tab PO PRN (16:20)
[2020-04-20] MEDS: Sodium Chloride 0.9% 1,000 ML IV SCH ×2 (16:26→22:47)
[2020-04-20] MEDS ORDERED: LORazepam 2 MG/ML SDV IVPUSH PRN (16:49)
[2020-04-20] MEDS ORDERED: Non-Formulary Medication 1 Each (Atorvastatin Calcium [Atorvastatin Calcium] 40 MG) PO SCH (16:49)
[2020-04-20] MEDS ORDERED: 50% Dextrose in Water 50 ML Syringe IV PRN (16:49)
[2020-04-20] MEDS ORDERED: Albuterol 0.083% 2.5 MG/3 ML Neb Soln NEB PRN (16:49)
[2020-04-20] MEDS ORDERED: Glucose Gel 15 GM in 37.5 GM Tube PO PRN (16:49)
[2020-04-20] MEDS ORDERED: Ondansetron 4 MG/2 ML SDV IV PRN (16:49)
[2020-04-20] MEDS ORDERED: Ondansetron 4 MG Tab.DIS PO PRN (16:49)
[2020-04-20] MEDS ORDERED: Acetaminophen 325 MG Tab PO PRN (16:49)
[2020-04-20] MEDS: Carvedilol 12.5 MG Tab PO SCH (17:34)
[2020-04-20] MEDS: atorvaSTATin 20 MG Tab PO SCH (17:34)
[2020-04-20] MEDS: Insulin Lispro 100 Unit/ML 3 ML KwikPen SUBCUT SCH ×2 (18:36→22:15)
[2020-04-20] MEDS: HYDROmorphone 0.5 MG/0.5 ML Syringe IVPUSH PRN ×2 (18:58→20:54)
[2020-04-20] MEDS: ceFAZolin 1 GM in Premix Bag 1 BAG IV SCH (22:06)
[2020-04-20] MEDS: Acetaminophen 325 MG Tab PO PRN (22:07)
[2020-04-20] MEDS: oxyCODONE 5 MG Tab PO PRN (22:08)
[2020-04-20] MEDS: Melatonin 3 MG Tab PO SCH (22:18)
[2020-04-20] MEDS: Nozin Nasal Sanitizer NASBOTH SCH (22:46)
[2020-04-21] MEDS: Acetaminophen 325 MG Tab PO PRN ×4 (02:07→19:42)
[2020-04-21] MEDS: oxyCODONE 5 MG Tab PO PRN ×4 (02:08→19:41)
[2020-04-21] MEDS: HYDROmorphone 0.5 MG/0.5 ML Syringe IVPUSH PRN ×2 (05:40→11:21)
[2020-04-21] MEDS: ceFAZolin 1 GM in Premix Bag 1 BAG IV SCH (05:41)
--- NOTE | 2020-04-21 07:04 | PCM.SN.2 ---
- Free Text/Narrative Note: Time call 0556am call from [address] [place] [address]. O.) vital signs at 0310 am 36.5-80-18 B/P 96/45 O2 sat 99% morning labs hemoglobin 6.9 hct 19.1 A) anemia secondary to surgery and hip fracture P) type and cross two units of PRBC. give one unit now and recheck hemoglobin in 2 hours after unit is completed.
[2020-04-21] MEDS: Insulin Lispro 100 Unit/ML 3 ML KwikPen SUBCUT SCH ×2 (07:57→12:03)
[2020-04-21] MEDS ORDERED: Enoxaparin 40 MG/0.4 ML Syringe SUBCUT SCH (09:00)
[2020-04-21] MEDS ORDERED: PAROXETINE HCL 30 MG PO SCH (09:00)
[2020-04-21] MEDS: Allopurinol 100 MG Tab PO SCH (09:56)
[2020-04-21] MEDS: Docusate Sodium 100 MG Cap PO SCH (09:56)
[2020-04-21] MEDS: PARoxetine 20 MG Tab PO SCH (09:57)
[2020-04-21] MEDS: Nozin Nasal Sanitizer NASBOTH SCH ×2 (09:57→20:45)
[2020-04-21] MEDS: Anastrozole 1 MG Tab PO SCH (09:57)
[2020-04-21] MEDS: Insulin Glargine,Human Rec. Analog 100 Units/ML 3 ML Pen SUBCUT SCH (09:57)
[2020-04-21] MEDS: Enoxaparin 30 MG/0.3 ML Syringe SUBCUT SCH (09:57)
[2020-04-21] MEDS: Carvedilol 12.5 MG Tab PO SCH (10:04)
[2020-04-21] MEDS: Lisinopril 10 MG Tab PO SCH (10:04)
[2020-04-21] MEDS ORDERED: metFORMIN 500 MG Tab PO SCH ×2 (10:30→18:00)
[2020-04-21] MEDS: Sodium Chloride 0.9% 1,000 ML IV SCH (10:35)
--- NOTE | 2020-04-21 11:49 | PCM.PN ---
- General Info Date of Service: 04/21/20 Subjective Update: No acute events overnight. Surgery was fairly uneventful with an IM nailing of the right hip. Pain has been fairly well controlled. She did not sleep very well last night but otherwise is doing okay. No hypoxia. No nausea. Blood pressures are on the low side of normal. Hemoglobin did drop down to 6.2 this morning and she is receiving 2 units of blood. Functional Status: Reports: Pain Controlled, Tolerating Diet - Review of Systems General: Denies: Fever - Patient Data Vitals - Most Recent: Last Vital Signs Temp 36.6 C 04/21/20 10:28 Pulse 89 04/21/20 10:28 Resp 16 04/21/20 10:28 BP 128/47 L 04/21/20 10:28 Pulse Ox 97 04/21/20 10:28 Weight - Most Recent: 56.699 kg I&O - Last 24 Hours: Intake & Output 04/20/20 04/21/20 04/21/20 22:59 06:59 14:59 Intake Total 1021 1739 1155 Output Total 400 425 Balance 621 1739 730 Lab Results Last 24 Hours: Laboratory Results - last 24 hr 04/20/20 04/20/20 04/20/20 Range/Units 13:20 13:20 13:30 WBC 5.7 (4.5-11.0) K/uL RBC 2.94 L (3.30-5.50) M/uL Hgb 9.7 L D (12.0-15.0) g/dL Hct 30.3 L (36.0-48.0) % MCV 103 H (80-98) fL MCH 33 H (27-31) pg MCHC 32 (32-36) % Plt Count 153 (150-400) K/uL Sodium 136 L (140-148) mmol/L Potassium 5.4 H (3.6-5.2) mmol/L Chloride 102 (100-108) mmol/L Carbon Dioxide 20 L (21-32) mmol/L Anion Gap 19.4 H (5.0-14.0) mmol/L BUN 31 H D (7-18) mg/dL Creatinine 1.6 H (0.6-1.0) mg/dL Est Cr Clr Drug Dosing TNP Estimated GFR (MDRD) 31 L (>60) Glucose 169 H (74-106) mg/dL POC Glucose (74-106) MG/DL Calcium 9.2 (8.5-10.1) mg/dL SARS-CoV-2 RNA (JOSE) Negative (NEGATIVE) Blood Type Gel Antibody Screen Crossmatch 04/20/20 04/21/20 04/21/20 Range/Units 21:00 05:35 05:35 WBC 4.8 (4.5-11.0) K/uL RBC 1.79 L (3.30-5.50) M/uL Hgb 6.2 L* D (12.0-15.0) g/dL Hct 19.1 L (36.0-48.0) % MCV 107 H (80-98) fL MCH 35 H (27-31) pg MCHC 33 (32-36) % Plt Count 94 L (150-400) K/uL Sodium 138 L (140-148) mmol/L Potassium 4.8 (3.6-5.2) mmol/L Chloride 107 (100-108) mmol/L Carbon Dioxide 20 L (21-32) mmol/L Anion Gap 15.8 H (5.0-14.0) mmol/L BUN 25 H (7-18) mg/dL Creatinine 1.4 H (0.6-1.0) mg/dL Est Cr Clr Drug Dosing 27.84 Estimated GFR (MDRD) 36 L (>60) Glucose 139 H (74-106) mg/dL POC Glucose 163 H (74-106) MG/DL Calcium 7.9 L (8.5-10.1) mg/dL SARS-CoV-2 RNA (JOSE) (NEGATIVE) Blood Type Gel Antibody Screen Crossmatch 04/21/20 04/21/20 04/21/20 Range/Units 06:00 07:50 11:36 WBC (4.5-11.0) K/uL RBC (3.30-5.50) M/uL Hgb (12.0-15.0) g/dL Hct (36.0-48.0) % MCV (80-98) fL MCH (27-31) pg MCHC (32-36) % Plt Count (150-400) K/uL Sodium (140-148) mmol/L Potassium (3.6-5.2) mmol/L Chloride (100-108) mmol/L Carbon Dioxide (21-32) mmol/L Anion Gap (5.0-14.0) mmol/L BUN (7-18) mg/dL Creatinine (0.6-1.0) mg/dL Est Cr Clr Drug Dosing Estimated GFR (MDRD) (>60) Glucose (74-106) mg/dL POC Glucose 157 H 166 H (74-106) MG/DL Calcium (8.5-10.1) mg/dL SARS-CoV-2 RNA (JOSE) (NEGATIVE) Blood Type O POSITIVE Gel Antibody Screen Negative Crossmatch See Detail Med Orders - Current: Current Medications Acetaminophen (Tylenol) 650 mg PO Q4H PRN PRN Reason: Pain/Fever Last Admin: 04/21/20 09:55 Dose: 650 mg Documented by: Albuterol (Proventil Neb Soln) 2.5 mg NEB Q4H PRN PRN Reason: Shortness Of Breath/wheezing Allopurinol (Zyloprim) 200 mg PO DAILY [facility] Last Admin: 04/21/20 09:56 Dose: 200 mg Documented by: Anastrozole (Arimidex) 1 mg PO DAILY [facility] Last Admin: 04/21/20 09:57 Dose: 1 mg Documented by: Atorvastatin Calcium (Lipitor) 40 mg PO ACDINNER [facility] Last Admin: 04/20/20 17:34 Dose: 40 mg Documented by: Bandage/Support Products ( Nasal Sales Operations Specialist) 1 applic NASBOTH BID [facility] Stop: 04/27/20 21:01 Last Admin: 04/21/20 09:57 Dose: 1 applic Documented by: Carvedilol (Coreg) 12.5 mg PO BIDMEALS [facility] Last Admin: 04/21/20 10:04 Dose: Not Given Documented by: Dextrose (Glutose 15) 15 gm PO Q2H PRN PRN Reason: Hypoglycemia Dextrose/Water (Dextrose 50% In Water) 50 ml IV Q1H PRN PRN Reason: Hypoglycemia Docusate Sodium (Colace) 100 mg PO DAILY [facility] Last Admin: 04/21/20 09:56 Dose: 100 mg Documented by: Enoxaparin Sodium (Lovenox) 30 mg SUBCUT DAILY [facility] Last Admin: 04/21/20 09:57 Dose: 30 mg Documented by: Hydromorphone HCl (Dilaudid) 0.5 mg IVPUSH Q2H PRN PRN Reason: Pain (severe 7-10) Last Admin: 04/21/20 11:21 Dose: 0.5 mg Documented by: Sodium Chloride (Normal Saline) 1,000 mls @ 125 mls/hr IV ASDIRECTED [facility] Last Admin: 04/21/20 10:35 Dose: 125 mls/hr Documented by: Insulin Glargine (Lantus Solostar) 14 units SUBCUT DAILY [facility] Last Admin: 04/21/20 09:57 Dose: 14 units Documented by: Insulin Human Lispro (Humalog) 0 unit SUBCUT QIDACANDBED [facility]; Protocol Last Admin: 04/21/20 07:57 Dose: 1 units Documented by: Lisinopril (Prinivil) 10 mg PO DAILY [facility] Last Admin: 04/21/20 10:04 Dose: Not Given Documented by: Lorazepam (Ativan) 0.5 mg IVPUSH Q4H PRN PRN Reason: Nausea/Vomiting Magnesium Hydroxide (Milk Of Magnesia) 30 ml PO Q6H PRN PRN Reason: Stool Softener Melatonin (Melatonin) 9 mg PO BEDTIME [facility] Last Admin: 04/20/20 22:18 Dose: 9 mg Documented by: Metformin [facility] ([facility]uc[facility]) [facility] Ondansetron HCl (Zofran) 4 mg IVPUSH Q6H PRN PRN Reason: Nausea/Vomiting Ondansetron HCl (Zofran Odt) 4 mg PO Q6H PRN PRN Reason: Nausea able to take PO Oxycodone HCl (Oxycodone) 5 - 10 mg PO Q4H PRN PRN Reason: Pain Last Admin: 04/21/20 09:56 Dose: 5 mg Documented by: Paroxetine HCl (Paxil) 30 mg PO DAILY [facility] Last Admin: 04/21/20 09:57 Dose: 30 mg Documented by: Senna/Docusate Sodium (Senna Plus) 1 tab PO BID PRN PRN Reason: Constipation Sodium Chloride (Saline Flush) 10 ml FLUSH ASDIRECTED PRN PRN Reason: Keep Vein Open Last Admin: 04/20/20 13:04 Dose: 10 ml Documented by: Discontinued Medications Hydrocodone Bitart/Acetaminophen ([place] 325-5 Mg) 2 tab PO Q4H PRN PRN Reason: Pain (moderate 4-6) Bacitracin (Bacitracin Oint 1 Gm) 1 dose TOP ONETIME ONE Stop: 04/20/20 13:00 Last Admin: 04/20/20 13:05 Dose: 1 dose Documented by: Bacitracin (Bacitracin Oint 1 Gm) Confirm Administered Dose 1 dose .ROUTE .STK- MED ONE Stop: 04/20/20 15:59 Last Admin: 04/20/20 16:16 Dose: 1 dose Documented by: Bupivacaine HCl/Epinephrine Bitart (Marcaine 0.5%/Epinephrine 1:200,000) Confirm Administered Dose 0 ml .ROUTE .STK-MED ONE Stop: 04/20/20 13:54 Fentanyl (Sublimaze) Confirm Administered Dose 100 mcg .ROUTE .STK-MED ONE Stop: 04/20/20 13:36 Hydromorphone HCl (Dilaudid) 0.25 mg IVPUSH ONETIME ONE Stop: 04/20/20 12:10 Last Admin: 04/20/20 12:21 Dose: 0.25 mg Documented by: Hydromorphone HCl (Dilaudid) 0.5 mg IVPUSH ONETIME ONE Stop: 04/20/20 13:00 Last Admin: 04/20/20 13:04 Dose: 0.5 mg Documented by: Cefazolin Sodium/Dextrose 2 gm (/ Premix) 50 mls @ 100 mls/hr IV ONETIME ONE Stop: 04/20/20 13:41 Last Admin: 04/20/20 14:43 Dose: 100 mls/hr Documented by: Sodium Chloride (Normal Saline) 1,000 mls @ 125 mls/hr IV ASDIRECTED [facility] Last Admin: 04/20/20 14:30 Dose: 125 mls/hr Documented by: Cefazolin Sodium/Dextrose 1 gm (/ Premix) 50 mls @ 200 mls/hr IV Q8H [facility] Stop: 04/21/20 06:14 Last Admin: 04/21/20 05:41 Dose: 200 mls/hr Documented by: Midazolam HCl (Versed 1 Mg/Ml) Confirm Administered Dose 2 mg .ROUTE .STK-MED ONE Stop: 04/20/20 13:36 Morphine Sulfate (Morphine) 2 mg SUBCUT Q1H PRN PRN Reason: Breakthrough Pain Oxycodone/Acetaminophen (Percocet 325-5 Mg) 1 tab PO Q4H PRN PRN Reason: Pain (severe 7-10) Propofol (Diprivan 20 Ml) Confirm Administered Dose 200 mg .ROUTE .STK-MED ONE Stop: 04/20/20 13:35 Tramadol HCl (Ultram) 50 mg PO Q6H PRN PRN Reason: Pain (mild 1-3) - Exam Quality Assessment: No: Supplemental Oxygen General: Alert, Oriented, Cooperative, No Acute Distress Lungs: Clear to Auscultation, Normal Respiratory Effort Cardiovascular: Regular Rate, Regular Rhythm GI/Abdominal Exam: Normal Bowel Sounds, Soft, No Distention Extremities: No Pedal Edema. No: Increased Warmth Skin: Warm, Dry Wound/Incisions: Dressing Dry and Intact Psy/Mental Status: Alert, Normal Affect Sepsis Event Note - Evaluation Sepsis Screening Result: No Definite Risk - Focused Exam Vital Signs: Vital Signs Temp Temp Pulse Resp BP Pulse Ox 04/21/20 10:28 36.6 C 89 16 128/47 L 97 04/21/20 10:25 36.8 C 91 14 127/50 L 97 04/21/20 09:50 36.9 C 91 16 113/49 L 97 04/21/20 09:25 37 C 88 16 98/77 100 04/21/20 08:55 36.9 C 89 16 129/70 99 04/21/20 08:25 36.3 C 91 16 102/40 L 100 04/21/20 08:10 36.5 C 84 14 103/36 L 100 04/21/20 07:54 36.6 C 80 14 100/42 L 99 04/21/20 07:40 36.4 C 81 16 97/40 L 100 04/21/20 07:32 36.7 C 83 16 100/57 L 97 04/21/20 03:10 36.5 C 80 18 96/45 L 99 - Problem List & Annotations (1) Fracture, intertrochanteric, right femur SNOMED Code(s): 022279054, 16717357486155207 Code(s): S72.141A - DISPLACED INTERTROCHANTERIC FRACTURE OF RIGHT FEMUR, INIT Status: Acute Current Visit: Yes Qualifiers: Encounter type: initial encounter Fracture type: closed Fracture alignment: nondisplaced Qualified Code(s): S72.144A - Nondisplaced intertrochanteric fracture of right femur, initial encounter for closed fracture (2) Coronary artery disease SNOMED Code(s): 78732675 Code(s): I25.10 - ATHSCL HEART DISEASE OF [place] CORONARY ARTERY W/O ANG PCTRS Status: Chronic Current Visit: Yes Qualifiers: Coronary Disease-Associated Artery/Lesion type: [place] artery [place] vs. transplanted heart: [place] heart Associated angina: without angina Qualified Code(s): I25.10 - Atherosclerotic heart disease of [place] coronary artery without angina pectoris (3) Insulin dependent diabetes mellitus SNOMED Code(s): 69592525 Code(s): BSP6408 - Status: Chronic Current Visit: Yes (4) Breast cancer SNOMED Code(s): 001356320 Code(s): C50.919 - MALIGNANT NEOPLASM OF UNSP SITE OF UNSPECIFIED FEMALE BREAST Status: Chronic Current Visit: No Qualifiers: Breast location: are[place] Laterality: left (5) Anemia due to blood loss, acute SNOMED Code(s): 027098536 Code(s): D62 - ACUTE POSTHEMORRHAGIC ANEMIA Status: Acute Current Visit: Yes - Problem List Review Problem List Initiated/Reviewed/Updated: Yes - My Orders Last 24 Hours: My Active Orders 04/20/20 14:08 Resuscitation Status Routine 04/20/20 16:49 Albuterol [Proventil Neb Soln] 2.5 mg NEB Q4H PRN Dextrose 50% in Water 50 ml IV Q1H PRN Dextrose [Glutose 15] 15 gm PO Q2H PRN Docusate Sodium/Sennosides [Senna Plus] 1 tab PO BID PRN LORazepam [Ativan] 0.5 mg IVPUSH Q4H PRN Ondansetron [Zofran ODT] 4 mg PO Q6H PRN oxyCODONE 5 - 10 mg PO Q4H PRN 04/20/20 16:49 Patient Status [ADT] Routine Communication Order [RC] PER UNIT ROUTINE Diabetes Education [RC] Click to Edit Intake and Output [RC] QSHIFT Notify Provider Consults [RC] ASDIRECTED Notify Provider Vital Signs [RC] ASDIRECTED Notify Provider [RC] PRN Oxygen Therapy [RC] PRN RT Aerosol Therapy [RC] ASDIRECTED Up With Assistance [RC] ASDIRECTED VTE/DVT Education [RC] Per Unit Routine Vital Signs [RC] Q4H Consult to Physician [CONS] Routine Sequential Compression Device [OM.PC] Routine VTE Pharmacological Contraindications [AST] Routine 04/20/20 17:00 Insulin Lispro [HumaLOG] See Protocol SUBCUT QIDACANDBED carvediloL [Coreg] 12.5 mg PO BIDMEALS 04/20/20 17:11 HYDROmorphone [Dilaudid] 0.5 mg IVPUSH Q2H PRN 04/20/20 18:00 atorvaSTATin [Lipitor] 40 mg PO ACDINNER 04/20/20 21:00 Melatonin 9 mg PO BEDTIME 04/21/20 09:00 Anastrozole [Arimidex] 1 mg PO DAILY Insulin Glarg,Human.Rec.Analog [LantUS Solostar] 14 units SUBCUT DAILY PARoxetine [Paxil] 30 mg PO DAILY allopurinoL [Zyloprim] 200 mg PO DAILY lisinopriL [Prinivil] 10 mg PO DAILY 04/21/20 11:47 Convert IV to Saline Lock [OM.PC] Routine 04/21/20 Lunch Consistent Carbohydrate Diet [DIET] 04/21/20 12:30 HEMOGLOBIN [HEME] Routine 04/21/20 13:00 Reeves Catheter Insertion [Insert Urinary Catheter] [OM.PC] Q24H 04/21/20 16:30 GLUCOSE POC LAB TO COLLECT JPM [POC] QIDACANDBED 04/21/20 17:00 metFORMIN [Glucophage] 1,000 mg PO BIDMEALS 04/21/20 21:00 GLUCOSE POC LAB TO COLLECT JPM [POC] QIDACANDBED 04/22/20 05:00 BASIC METABOLIC PANEL,BMP [CHEM] Timed CBC W/O DIFF,HEMOGRAM [HEME] Timed (1) 04/22/20 07:30 GLUCOSE POC LAB TO COLLECT JPM [POC] QIDACANDBED 04/22/20 11:30 GLUCOSE POC LAB TO COLLECT JPM [POC] QIDACANDBED 04/22/20 16:30 GLUCOSE POC LAB TO COLLECT JPM [POC] QIDACANDBED 04/22/20 21:00 GLUCOSE POC LAB TO COLLECT JPM [POC] QIDACANDBED 04/23/20 07:30 GLUCOSE POC LAB TO COLLECT JPM [POC] QIDACANDBED 04/23/20 11:30 GLUCOSE POC LAB TO COLLECT JPM [POC] QIDACANDBED 04/23/20 16:30 GLUCOSE POC LAB TO COLLECT JPM [POC] QIDACANDBED 04/23/20 21:00 GLUCOSE POC LAB TO COLLECT JPM [POC] QIDACANDBED 04/24/20 07:30 GLUCOSE POC LAB TO COLLECT JPM [POC] QIDACANDBED 04/24/20 11:30 GLUCOSE POC LAB TO COLLECT JPM [POC] QIDACANDBED 04/24/20 16:30 GLUCOSE POC LAB TO COLLECT JPM [POC] QIDACANDBED 04/24/20 21:00 GLUCOSE POC LAB TO COLLECT JPM [POC] QIDACANDBED 04/25/20 07:30 GLUCOSE POC LAB TO COLLECT JPM [POC] QIDACANDBED 04/25/20 11:30 GLUCOSE POC LAB TO COLLECT JPM [POC] QIDACANDBED 04/25/20 16:30 GLUCOSE POC LAB TO COLLECT JPM [POC] QIDACANDBED 04/25/20 21:00 GLUCOSE POC LAB TO COLLECT JPM [POC] QIDACANDBED 04/26/20 07:30 GLUCOSE POC LAB TO COLLECT JPM [POC] QIDACANDBED 04/26/20 11:30 GLUCOSE POC LAB TO COLLECT JPM [POC] QIDACANDBED - Plan Plan:: ASSESSMENT AND PLAN - Right hip fracture-secondary to fall at home. Surgical repair completed 04/20. Doing well postoperatively other than borderline hypotension. Hemoglobin did drop as discussed below. -Surgical follow-up with Dr Gregory Dotson -Physical therapy when able postoperatively -higher risk for DVT with hx of cancer, recommend one month of enoxaparin Anemia due to blood loss-Baseline hemoglobin was low and she has dropped some with surgery and probably a component of dilution as well. She is receiving 2 units of blood. -Repeat hemoglobin this afternoon and in the morning IDDM-sugars well controlled at home. -Long-acting insulin started this morning. -Discontinue sliding scale CAD-history of bypass surgery in 2018. No recent anginal symptoms. Acceptable functional status. -Continue medical management Hx of breast cancer-on chronic hormonal therapy. -Continue home medications Maintenance issues - - DVT prophylaxis -mechanical today, enoxaparin when able after surgery - GI prophylaxis -not indicated - Nutrition -NPO until after surgery - Reeves catheter -placed in ER for strict intake and output monitoring, will remain in place with low blood pressures but should be able to remove tomorrow Disposition -I would anticipate discharge for subacute rehab after the hospital stay Primary care physician -Dr. Derrick Brewer M.D.
[2020-04-21] MEDS: atorvaSTATin 20 MG Tab PO SCH (15:38)
[2020-04-21] MEDS: metFORMIN 500 MG Tab PO SCH (18:01)
[2020-04-21] MEDS: Melatonin 3 MG Tab PO SCH (20:45)
[2020-04-22] MEDS: oxyCODONE 5 MG Tab PO PRN ×3 (07:35→19:49)
[2020-04-22] MEDS: Acetaminophen 325 MG Tab PO PRN ×3 (07:35→19:48)
[2020-04-22] MEDS: Nozin Nasal Sanitizer NASBOTH SCH ×2 (08:31→23:29)
[2020-04-22] MEDS: Enoxaparin 30 MG/0.3 ML Syringe SUBCUT SCH (08:32)
[2020-04-22] MEDS: PARoxetine 20 MG Tab PO SCH (08:32)
[2020-04-22] MEDS: Docusate Sodium 100 MG Cap PO SCH (08:32)
[2020-04-22] MEDS: metFORMIN 500 MG Tab PO SCH ×2 (08:32→16:51)
[2020-04-22] MEDS: Anastrozole 1 MG Tab PO SCH (08:33)
[2020-04-22] MEDS: Allopurinol 100 MG Tab PO SCH (08:34)
[2020-04-22] MEDS: Insulin Glargine,Human Rec. Analog 100 Units/ML 3 ML Pen SUBCUT SCH (08:34)
[2020-04-22] MEDS: Lisinopril 10 MG Tab PO SCH (11:41)
--- NOTE | 2020-04-22 14:31 | PCM.PN ---
- General Info Date of Service: 04/22/20 Subjective Update: There were no acute events overnight. Vital signs have been stable and her blood pressures have actually normalized and become slightly high. Pain is fairly well controlled. No significant nausea or abdominal pain. She has not been hypoxic. She is doing well with physical therapy. Hemoglobin did initially improve with the blood transfusion yesterday but now is down to around 7 again. No evidence for active bleeding. Functional Status: Reports: Pain Controlled, Tolerating Diet - Review of Systems General: Denies: Fever - Patient Data Vitals - Most Recent: Last Vital Signs Temp 36.2 C 04/22/20 13:11 Pulse 90 04/22/20 13:11 Resp 16 04/22/20 13:11 BP 144/61 H 04/22/20 13:11 Pulse Ox 96 04/22/20 07:12 Weight - Most Recent: 56.699 kg I&O - Last 24 Hours: Intake & Output 04/21/20 04/22/20 04/22/20 22:59 06:59 14:59 Intake Total 536 500 577 Output Total 450 1500 Balance 86 -1000 577 Lab Results Last 24 Hours: Laboratory Results - last 24 hr 04/21/20 04/21/20 04/21/20 Range/Units 06:00 16:30 21:00 WBC (4.5-11.0) K/uL RBC (3.30-5.50) M/uL Hgb (12.0-15.0) g/dL Hct (36.0-48.0) % MCV (80-98) fL MCH (27-31) pg MCHC (32-36) % Plt Count (150-400) K/uL Sodium (140-148) mmol/L Potassium (3.6-5.2) mmol/L Chloride (100-108) mmol/L Carbon Dioxide (21-32) mmol/L Anion Gap (5.0-14.0) mmol/L BUN (7-18) mg/dL Creatinine (0.6-1.0) mg/dL Est Cr Clr Drug Dosing mL/min Estimated GFR (MDRD) (>60) Glucose (74-106) mg/dL POC Glucose 151 H 133 H (74-106) MG/DL Calcium (8.5-10.1) mg/dL Blood Type O POSITIVE Gel Antibody Screen Negative Crossmatch See Detail 04/22/20 04/22/20 04/22/20 Range/Units 04:10 04:10 07:27 WBC 4.0 L (4.5-11.0) K/uL RBC 2.26 L (3.30-5.50) M/uL Hgb 7.2 L (12.0-15.0) g/dL Hct 22.6 L (36.0-48.0) % MCV 100 H (80-98) fL MCH 32 H (27-31) pg MCHC 32 (32-36) % Plt Count 82 L (150-400) K/uL Sodium 139 L (140-148) mmol/L Potassium 4.1 (3.6-5.2) mmol/L Chloride 107 (100-108) mmol/L Carbon Dioxide 20 L (21-32) mmol/L Anion Gap 16.1 H (5.0-14.0) mmol/L BUN 17 (7-18) mg/dL Creatinine 1.1 H (0.6-1.0) mg/dL Est Cr Clr Drug Dosing 35.43 mL/min Estimated GFR (MDRD) 48 L (>60) Glucose 104 (74-106) mg/dL POC Glucose 122 H (74-106) MG/DL Calcium 8.4 L (8.5-10.1) mg/dL Blood Type Gel Antibody Screen Crossmatch 04/22/20 Range/Units 11:38 WBC (4.5-11.0) K/uL RBC (3.30-5.50) M/uL Hgb (12.0-15.0) g/dL Hct (36.0-48.0) % MCV (80-98) fL MCH (27-31) pg MCHC (32-36) % Plt Count (150-400) K/uL Sodium (140-148) mmol/L Potassium (3.6-5.2) mmol/L Chloride (100-108) mmol/L Carbon Dioxide (21-32) mmol/L Anion Gap (5.0-14.0) mmol/L BUN (7-18) mg/dL Creatinine (0.6-1.0) mg/dL Est Cr Clr Drug Dosing mL/min Estimated GFR (MDRD) (>60) Glucose (74-106) mg/dL POC Glucose 161 H (74-106) MG/DL Calcium (8.5-10.1) mg/dL Blood Type Gel Antibody Screen Crossmatch Med Orders - Current: Current Medications Acetaminophen (Tylenol) 650 mg PO Q4H PRN PRN Reason: Pain/Fever Last Admin: 04/22/20 12:23 Dose: 650 mg Documented by: Albuterol (Proventil Neb Soln) 2.5 mg NEB Q4H PRN PRN Reason: Shortness Of Breath/wheezing Allopurinol (Zyloprim) 200 mg PO DAILY [facility] Last Admin: 04/22/20 08:34 Dose: 200 mg Documented by: Anastrozole (Arimidex) 1 mg PO DAILY [facility] Last Admin: 04/22/20 08:33 Dose: 1 mg Documented by: Atorvastatin Calcium (Lipitor) 40 mg PO ACDINNER [facility] Last Admin: 04/21/20 15:38 Dose: 40 mg Documented by: Bandage/Support Products ( Nasal Branch Mechanic) 1 applic NASBOTH BID [facility] Stop: 04/27/20 21:01 Last Admin: 04/22/20 08:31 Dose: 1 applic Documented by: Carvedilol (Coreg) 12.5 mg PO BIDMEALS [facility] Last Admin: 04/21/20 10:04 Dose: Not Given Documented by: Dextrose (Glutose 15) 15 gm PO Q2H PRN PRN Reason: Hypoglycemia Dextrose/Water (Dextrose 50% In Water) 50 ml IV Q1H PRN PRN Reason: Hypoglycemia Docusate Sodium (Colace) 100 mg PO DAILY [facility] Last Admin: 04/22/20 08:32 Dose: 100 mg Documented by: Enoxaparin Sodium (Lovenox) 30 mg SUBCUT DAILY [facility] Last Admin: 04/22/20 08:32 Dose: 30 mg Documented by: Hydromorphone HCl (Dilaudid) 0.5 mg IVPUSH Q2H PRN PRN Reason: Pain (severe 7-10) Last Admin: 04/21/20 11:21 Dose: 0.5 mg Documented by: Insulin Glargine (Lantus Solostar) 14 units SUBCUT DAILY [facility] Last Admin: 04/22/20 08:34 Dose: 14 units Documented by: Lisinopril (Prinivil) 10 mg PO DAILY [facility] Last Admin: 04/22/20 11:41 Dose: 10 mg Documented by: Lorazepam (Ativan) 0.5 mg IVPUSH Q4H PRN PRN Reason: Nausea/Vomiting Magnesium Hydroxide (Milk Of Magnesia) 30 ml PO Q6H PRN PRN Reason: Stool Softener Last Admin: 04/22/20 08:31 Dose: 30 ml Documented by: Melatonin (Melatonin) 9 mg PO BEDTIME [facility] Last Admin: 04/21/20 20:45 Dose: 9 mg Documented by: Metformin HCl (Glucophage) 1,000 mg PO BIDMEALS [facility] Last Admin: 04/22/20 08:32 Dose: 1,000 mg Documented by: Ondansetron HCl (Zofran) 4 mg IVPUSH Q6H PRN PRN Reason: Nausea/Vomiting Ondansetron HCl (Zofran Odt) 4 mg PO Q6H PRN PRN Reason: Nausea able to take PO Oxycodone HCl (Oxycodone) 5 - 10 mg PO Q4H PRN PRN Reason: Pain Last Admin: 04/22/20 12:23 Dose: 10 mg Documented by: Paroxetine HCl (Paxil) 30 mg PO DAILY [facility] Last Admin: 04/22/20 08:32 Dose: 30 mg Documented by: Senna/Docusate Sodium (Senna Plus) 1 tab PO BID PRN PRN Reason: Constipation Last Admin: 04/22/20 08:31 Dose: 1 tab Documented by: Sodium Chloride (Saline Flush) 10 ml FLUSH ASDIRECTED PRN PRN Reason: Keep Vein Open Last Admin: 04/20/20 13:04 Dose: 10 ml Documented by: Discontinued Medications Hydrocodone Bitart/Acetaminophen ([place] 325-5 Mg) 2 tab PO Q4H PRN PRN Reason: Pain (moderate 4-6) Bacitracin (Bacitracin Oint 1 Gm) 1 dose TOP ONETIME ONE Stop: 04/20/20 13:00 Last Admin: 04/20/20 13:05 Dose: 1 dose Documented by: Bacitracin (Bacitracin Oint 1 Gm) Confirm Administered Dose 1 dose .ROUTE .STK- MED ONE Stop: 04/20/20 15:59 Last Admin: 04/20/20 16:16 Dose: 1 dose Documented by: Bupivacaine HCl/Epinephrine Bitart ([place] 0.5%/Epinephrine 1:200,000) Confirm Administered Dose 0 ml .ROUTE .STK-MED ONE Stop: 04/20/20 13:54 Fentanyl (Sublimaze) Confirm Administered Dose 100 mcg .ROUTE .STK-MED ONE Stop: 04/20/20 13:36 Hydromorphone HCl (Dilaudid) 0.25 mg IVPUSH ONETIME ONE Stop: 04/20/20 12:10 Last Admin: 04/20/20 12:21 Dose: 0.25 mg Documented by: Hydromorphone HCl (Dilaudid) 0.5 mg IVPUSH ONETIME ONE Stop: 04/20/20 13:00 Last Admin: 04/20/20 13:04 Dose: 0.5 mg Documented by: Cefazolin Sodium/Dextrose 2 gm (/ Premix) 50 mls @ 100 mls/hr IV ONETIME ONE Stop: 04/20/20 13:41 Last Admin: 04/20/20 14:43 Dose: 100 mls/hr Documented by: Sodium Chloride (Normal Saline) 1,000 mls @ 125 mls/hr IV ASDIRECTED [facility] Last Admin: 04/20/20 14:30 Dose: 125 mls/hr Documented by: Sodium Chloride (Normal Saline) 1,000 mls @ 125 mls/hr IV ASDIRECTED [facility] Last Admin: 04/21/20 10:35 Dose: 125 mls/hr Documented by: Cefazolin Sodium/Dextrose 1 gm (/ Premix) 50 mls @ 200 mls/hr IV Q8H [facility] Stop: 04/21/20 06:14 Last Admin: 04/21/20 05:41 Dose: 200 mls/hr Documented by: Insulin Human Lispro (Humalog) 0 unit SUBCUT QIDACANDBED [facility]; Protocol Last Admin: 04/21/20 12:03 Dose: 1 units Documented by: Midazolam HCl (Versed 1 Mg/Ml) Confirm Administered Dose 2 mg .ROUTE .STK-MED ONE Stop: 04/20/20 13:36 Morphine Sulfate (Morphine) 2 mg SUBCUT Q1H PRN PRN Reason: Breakthrough Pain Oxycodone/Acetaminophen (Percocet 325-5 Mg) 1 tab PO Q4H PRN PRN Reason: Pain (severe 7-10) Propofol (Diprivan 20 Ml) Confirm Administered Dose 200 mg .ROUTE .STK-MED ONE Stop: 04/20/20 13:35 Tramadol HCl (Ultram) 50 mg PO Q6H PRN PRN Reason: Pain (mild 1-3) - Exam Quality Assessment: No: Supplemental Oxygen General: Alert, Oriented, Cooperative, No Acute Distress Lungs: Normal Respiratory Effort. No: Wheezing Cardiovascular: Regular Rate, Regular Rhythm GI/Abdominal Exam: Soft, No Distention Extremities: No Pedal Edema. No: Increased Warmth Skin: Warm, Dry, Ecchymosis (mild distal end of incision and proximal end of incision ) Wound/Incisions: Dressing Dry and Intact Psy/Mental Status: Alert, Normal Affect Sepsis Event Note - Evaluation Sepsis Screening Result: No Definite Risk - Focused Exam Vital Signs: Vital Signs Temp Temp Pulse Resp BP BP Pulse Ox 04/22/20 13:11 36.2 C 90 16 144/61 H 04/22/20 12:40 36.2 C 98 16 153/78 H 04/22/20 12:10 36.4 C 89 16 149/84 H 04/22/20 11:41 143/64 H 04/22/20 11:40 36.4 C 91 16 141/62 H 04/22/20 11:25 36.2 C 93 16 141/52 H 04/22/20 11:10 36.3 C 93 16 121/74 04/22/20 10:48 36.7 C 87 16 141/55 H 04/22/20 08:25 123/61 04/22/20 07:12 37.0 C 98 16 184/65 H 96 04/22/20 03:04 37.1 C 96 16 143/58 H 97 - Problem List & Annotations (1) Fracture, intertrochanteric, right femur SNOMED Code(s): 973023473, 32874519677449804 Code(s): S72.141A - DISPLACED INTERTROCHANTERIC FRACTURE OF RIGHT FEMUR, INIT Status: Acute Current Visit: Yes Qualifiers: Encounter type: initial encounter Fracture type: closed Fracture ali gnment: nondisplaced Qualified Code(s): S72.144A - Nondisplaced intertrochanteric fracture of right femur, initial encounter for closed fracture (2) Coronary artery disease SNOMED Code(s): 02365889 Code(s): I25.10 - ATHSCL HEART DISEASE OF [place] CORONARY ARTERY W/O ANG PCTRS Status: Chronic Current Visit: Yes Qualifiers: Coronary Disease-Associated Artery/Lesion type: [place] artery [place] vs. transplanted heart: [place] heart Associated angina: without angina Qualified Code(s): I25.10 - Atherosclerotic heart disease of [place] coronary artery without angina pectoris (3) Insulin dependent diabetes mellitus SNOMED Code(s): 41612177 Code(s): MKM7607 - Status: Chronic Current Visit: Yes (4) Breast cancer SNOMED Code(s): 871849888 Code(s): C50.919 - MALIGNANT NEOPLASM OF UNSP SITE OF UNSPECIFIED FEMALE BREAST Status: Chronic Current Visit: No Qualifiers: Breast location: [place] Laterality: left (5) Anemia due to blood loss, acute SNOMED Code(s): 157864611 Code(s): D62 - ACUTE POSTHEMORRHAGIC ANEMIA Status: Acute Current Visit: Yes - Problem List Review Problem List Initiated/Reviewed/Updated: Yes - My Orders Last 24 Hours: My Active Orders 04/21/20 17:00 metFORMIN [Glucophage] 1,000 mg PO BIDMEALS 04/22/20 08:41 Transfuse Red Blood Cells [COMM] Routine 04/22/20 13:00 DC Reeves Catheter [Urinary Catheter Removal] [RC] PER UNIT ROUTINE 04/22/20 16:30 GLUCOSE POC LAB TO COLLECT JPM [POC] QIDACANDBED 04/22/20 21:00 GLUCOSE POC LAB TO COLLECT JPM [POC] QIDACANDBED 04/23/20 05:00 CBC W/O DIFF,HEMOGRAM [HEME] Timed (1) 04/23/20 07:30 GLUCOSE POC LAB TO COLLECT JPM [POC] QIDACANDBED 04/23/20 11:30 GLUCOSE POC LAB TO COLLECT JPM [POC] QIDACANDBED 04/23/20 16:30 GLUCOSE POC LAB TO COLLECT JPM [POC] QIDACANDBED 04/23/20 21:00 GLUCOSE POC LAB TO COLLECT JPM [POC] QIDACANDBED 04/24/20 07:30 GLUCOSE POC LAB TO COLLECT JPM [POC] QIDACANDBED 04/24/20 11:30 GLUCOSE POC LAB TO COLLECT JPM [POC] QIDACANDBED 04/24/20 16:30 GLUCOSE POC LAB TO COLLECT JPM [POC] QIDACANDBED 04/24/20 21:00 GLUCOSE POC LAB TO COLLECT JPM [POC] QIDACANDBED 04/25/20 07:30 GLUCOSE POC LAB TO COLLECT JPM [POC] QIDACANDBED 04/25/20 11:30 GLUCOSE POC LAB TO COLLECT JPM [POC] QIDACANDBED 04/25/20 16:30 GLUCOSE POC LAB TO COLLECT JPM [POC] QIDACANDBED 04/25/20 21:00 GLUCOSE POC LAB TO COLLECT JPM [POC] QIDACANDBED 04/26/20 07:30 GLUCOSE POC LAB TO COLLECT JPM [POC] QIDACANDBED 04/26/20 11:30 GLUCOSE POC LAB TO COLLECT JPM [POC] QIDACANDBED - Plan Plan:: ASSESSMENT AND PLAN - Right hip fracture-secondary to fall at home. Surgical repair completed 04/20. Doing well postoperatively and vitals have been stable. -Surgical follow-up with Dr Gregory Dotson -Physical therapy when able postoperatively -higher risk for DVT with hx of cancer, recommend one month of enoxaparin (on hold with thrombocytopenia) Anemia due to blood loss-she did require 2 units of blood yesterday and will be getting 1 more today. No evidence for active bleeding and vital signs are all stable. -Transfuse 1 unit of packed red blood cells this morning -Repeat hemoglobin in the morning IDDM-sugars well controlled. -Continue long-acting insulin -Discontinue sliding scale CAD-history of bypass surgery in 2018. No recent anginal symptoms. Acceptable functional status. -Continue medical management Hx of breast cancer-on chronic hormonal therapy. -Continue home medications Maintenance issues - - DVT prophylaxis -did receive enoxaparin today but this will be on hold until platelets improve - GI prophylaxis -not indicated - Nutrition -consistent carbohydrates - Reeves catheter -will be removed today Disposition -I would anticipate discharge for subacute rehab after the hospital stay Primary care physician -Dr. Derrick Brewer M.D.
[2020-04-22] MEDS: atorvaSTATin 20 MG Tab PO SCH (16:51)
[2020-04-22] MEDS: Carvedilol 12.5 MG Tab PO SCH (16:51)
--- NOTE | 2020-04-22 21:14 | OR ---
DATE OF PROCEDURE: 04/20/2020 SURGEON: Gregory Dotson MD PREOPERATIVE DIAGNOSIS: Intertrochanteric fracture, right hip. POSTOPERATIVE DIAGNOSIS: Intertrochanteric fracture, right hip. PROCEDURE: Closed reduction and intramedullary fixation, right hip, using Synthes TFN device. ANESTHESIA: Spinal with sedation. INDICATIONS: Sherlyn is a 79-year-old female who sustained a fall at home resulting in a minimally displaced intertrochanteric fracture of her right hip. She also sustained a small laceration in the back of her head in the scalp with no loss of consciousness or concussion. She was evaluated by the hospitalist and taken to the operating room for fixation of fracture. Risks, benefits, potential complications of the procedure were discussed. PROCEDURE IN DETAIL: After adequate anesthesia was obtained, patient was placed on the fracture table. Padded perineal post was utilized. The left leg was abducted and slight counter pressure applied. The right leg was slightly adducted and internally rotated. The hip was then prepped and draped in a sterile fashion. A small incision was made at the tip of the greater trochanter, carried slightly superior. This was taken down through the subcutaneous tissues and the tensor fascia. Blunt dissection then carried down to the greater trochanter. A guide pin was then advanced into the trochanter and position confirmed using fluoroscopy. Flexible reamer was placed over this entering the intramedullary canal. A 10 mm TFN short juany was then placed across the fracture and position confirmed with fluoroscopy. Helical blade guide was then placed and a small stab incision was made distal to the trochanter. Guide was advanced to the cortex and a guide pin was then placed into the femoral head and neck. Position was confirmed on AP and lateral images. This was measured and a 95 mm helical blade was selected. Lateral cortex was drilled and the blade was then advanced over the guide pin. Position was confirmed using fluoroscopy. Insertion mechanism was removed along with the guide pin and cannula. Helical screw was locked in position. The distal locking screw guide was placed and a small stab incision was made. Cannula was advanced to the lateral cortex. Femur was drilled and measured, and locking screw was then advanced and position confirmed with fluoroscopy. The insertion guide was then removed and final fluoroscopic images were taken confirming position. Wound was irrigated. Tensor fascia was closed using 0 Vicryl in interrupted fashion. Skin was closed with 2-0 Vicryl and a running 3-0 Monocryl. Steri-Strips were applied. Sterile dressing was then placed. The patient was taken from the operating room in a stable condition. There were no complications. Gregory Dotson MD /[id number]
[2020-04-22] MEDS: Melatonin 3 MG Tab PO SCH (23:29)
[2020-04-23] MEDS: Acetaminophen 325 MG Tab PO PRN ×2 (03:32→07:56)
[2020-04-23] MEDS: oxyCODONE 5 MG Tab PO PRN ×2 (03:33→07:55)
[2020-04-23] MEDS: Carvedilol 12.5 MG Tab PO SCH (07:56)
[2020-04-23] MEDS: metFORMIN 500 MG Tab PO SCH (07:56)
[2020-04-23] MEDS: Lisinopril 10 MG Tab PO SCH (07:59)
[2020-04-23] MEDS: Allopurinol 100 MG Tab PO SCH (07:59)
[2020-04-23] MEDS: Anastrozole 1 MG Tab PO SCH (08:00)
[2020-04-23] MEDS: Insulin Glargine,Human Rec. Analog 100 Units/ML 3 ML Pen SUBCUT SCH (08:00)
[2020-04-23] MEDS: PARoxetine 20 MG Tab PO SCH (08:00)
[2020-04-23] MEDS: Docusate Sodium 100 MG Cap PO SCH (08:01)
[2020-04-23] MEDS: Nozin Nasal Sanitizer NASBOTH SCH (08:01)
--- NOTE | 2020-04-23 10:02 | PCM.DCSUM1 ---
Discharge Summary - Hospital Course Brief History: 79-year-old female with history of insulin-dependent diabetes mellitus, previous breast cancer who presented with right hip pain after falling at home. She was admitted for operative management of a right hip fracture. Diagnosis: Stroke: No - Discharge Data Discharge Date: 04/23/20 Discharge Disposition: DC/Tfer to SNF 03 Condition: Good - Referral to Home Health Primary Care Physician: PCP None - Discharge Diagnosis/Problem(s) (1) Fracture, intertrochanteric, right femur SNOMED Code(s): 043991250, [id number] ICD Code: S72.141A - DISPLACED INTERTROCHANTERIC FRACTURE OF RIGHT FEMUR, INIT Status: Acute Current Visit: Yes Qualifiers: Encounter type: initial encounter Fracture type: closed Fracture alignment: nondisplaced Qualified Code(s): S72.144A - Nondisplaced intertrochanteric fracture of right femur, initial encounter for closed fracture (2) Anemia due to blood loss, acute SNOMED Code(s): 520983564 ICD Code: D62 - ACUTE POSTHEMORRHAGIC ANEMIA Status: Acute Current Visit: Yes (3) Coronary artery disease SNOMED Code(s): 43047859 ICD Code: I25.10 - ATHSCL HEART DISEASE OF [place] CORONARY ARTERY W/O ANG PCTRS Status: Chronic Current Visit: Yes Qualifiers: Coronary Disease-Associated Artery/Lesion type: [place] artery [place] vs. transplanted heart: [place] heart Associated angina: without angina Qualified Code(s): I25.10 - Atherosclerotic heart disease of [place] coronary artery without angina pectoris (4) Insulin dependent diabetes mellitus SNOMED Code(s): 43881225 ICD Code: ARI7700 - Status: Chronic Current Visit: Yes (5) Breast cancer SNOMED Code(s): 542639894 ICD Code: C50.919 - MALIGNANT NEOPLASM OF UNSP SITE OF UNSPECIFIED FEMALE BREAST Status: Chronic Current Visit: No Qualifiers: Breast location: are[place] Laterality: left - Patient Summary/Data Consults: Consultations 04/20/20 16:07 Consult to Case Management/Movie Theater Manager [CONS] Routine Comment: Physician Instructions: Discharge placement post hip surgery Service(s) to be Consulted: Case Management PT Evaluation and Treatment [CONS] Routine Please Evaluate and Treat. PT Reason for Consult: Ambulation Discharge Disposition: [facility] Special Instructions: PWB on right , 75 % This query below is only for informational purposes and is not editable. Admission Diagnosis/Problem: Fracture of femur PT Evaluation and Treatment [CONS] Routine Please Evaluate and Treat. PT Reason for Consult: Post op Ortho Surgery Hip Pending Discharge: Yes, 2- -3 days Special Instructions: Schedule first outpatient P.T. appointment 3 - 5 days post discharge This query below is only for informational purposes and is not editable. Admission Diagnosis/Problem: Fracture of femur 04/20/20 16:14 OT Evaluation and Treatment [CONS] Routine Please Evaluate and Treat. OT Reason for Consult: ADL's Special Instructions: Status post Hip Surgery This query below is only for informational purposes and is not editable. Admission Diagnosis/Problem: Fracture of femur 04/20/20 16:49 Consult to Physician [CONS] Routine Consulting Provider: Gregory Dotson Call Completed to Consulting Physician: Yes Reason for Consult: right hip fx Person Notified: PETAL SHAPER HAND Date Notified: 04/20/20 Special Instructions: surgery this afternoon Hospital Course: Marleen presented to the emergency room with right hip pain after falling at home. X-ray imaging in the emergency room revealed an intertrochanteric right hip fracture. Baseline hemoglobin was 9.7. She was admitted to the hospital with the plan for operative intervention later in the day. The afternoon after admission the patient had an intramedullary nailing of the right hip. Her postoperative period was remarkable for low normal blood pressure though she was never hypotensive. The morning after admission her hemoglobin had dropped down to 6.2. She received 2 units of blood via transfusion. Her pain was fairly well controlled. Over the next 24 hours she remained stable. Her hemoglobin initially improved to nearly 8 after the transfusion but the next morning was down to 7.2 so we did give her 1/3 unit of blood via transfusion. Her hemoglo bin on the day of discharge is greater than 9. Her vital signs have been stable. Her pain is well controlled. She is on her usual home medications. She would benefit from subacute rehab and the plan is for her to go to the longterm for rehab prior to returning to her home. She does have a history of breast cancer and I believe is at a higher risk for postoperative DVT so she will be on enoxaparin for 25 days following hospital discharge. Her diabetes has been well controlled and no changes to her home regimen were made. She is stable and safe for discharge and transfer at this time. - Patient Instructions Diet: Diabetic Diet Activity: Partial Weight Bearing (75% weight bearing on right leg ) Showering/Bathing: May Shower Wound/Incision Care: Keep Operative Site/Wound Site Clean and Dry, Change Dressing Daily (cover with 4x4s and ABD and secure with tape ) Notify Provider of: Fever, Increased Pain, Swelling and Redness, Drainage Other/Special Instructions: 1. You were in the hospital for management of a right hip fracture. This was treated with intramedullary nailing. You have been improving following surgery. I recommend transfer to a subacute rehab center so you can continue to improve your strength and endurance following hip surgery. We will treat your pain with scheduled acetaminophen as well as as needed oxycodone. 2. Referral to Physical therapy and Occupational Therapy for strengthening following right hip surgery. 3. Code status - FULL CODE. 4. 75% weightbearing on your right leg. 5. Check blood sugars BIDAC (breakfast and supper). 6. Recheck hemoglobin 04/28 - dx: anemia due to blood loss - Discharge Plan *PRESCRIPTION DRUG MONITORING PROGRAM REVIEWED*: Not Applicable *COPY OF PRESCRIPTION DRUG MONITORING REPORT IN PATIENT PANCHO: Not Applicable Prescriptions/Med Rec: Enoxaparin [Lovenox] 30 mg SUBCUT DAILY #25 syringe oxyCODONE 5 mg PO Q4H PRN #60 tablet PRN Reason: Pain Docusate Sodium/Sennosides [Senna Plus] 1 tab PO BID PRN #60 tablet PRN Reason: Constipation Acetaminophen [Tylenol Extra Strength] 1,000 mg PO TID #200 tablet Home Medications: Home Meds PARoxetine HCl [Paroxetine HCl] 30 mg PO DAILY 06/16/14 [History] metFORMIN [Glucophage] 1,000 mg PO BID 06/16/14 [History] Anastrozole [Arimidex] 1 mg PO DAILY 05/30/19 [History] Aspirin 81 mg PO DAILY 05/30/19 [History] allopurinoL [Zyloprim] 200 mg PO DAILY 05/30/19 [History] atorvaSTATin Calcium [Atorvastatin Calcium] 40 mg PO ACDINNER 05/30/19 [History] carvediloL [Carvedilol] 12.5 mg SQ BIDMEALS 05/30/19 [History] lisinopriL [Lisinopril] 10 mg PO DAILY 05/30/19 [History] Cholecalciferol (Vitamin D3) [Vitamin D] 2,000 unit PO DAILY 06/12/19 [History] Nitroglycerin [Nitrostat] 0.4 mg SL ASDIRECTED 06/12/19 [History] Insulin Glargine,Hum.Rec.Anlog [Basaglar Kwikpen U-100] 14 units SUBCUT DAILY 04/20/20 [History] Acetaminophen [Tylenol Extra Strength] 1,000 mg PO TID #200 tablet 04/23/20 [Rx] Docusate Sodium/Sennosides [Senna Plus] 1 tab PO BID PRN #60 tablet 04/23/20 [Rx] Enoxaparin [Lovenox] 30 mg SUBCUT DAILY #25 syringe 04/23/20 [Rx] oxyCODONE 5 mg PO Q4H PRN #60 tablet 04/23/20 [Rx] Oxygen Therapy Mode: Room Air Patient Handouts: Intramedullary Nailing of Hip Fracture Referrals: Gregory Dotson MD [Physician] - 05/05/20 1:00 pm (Please arrive 15 minutes early to register for your appointment. [place] at the ER desk. ) - Discharge Summary/Plan Comment DC Time >30 min.: Yes (40-new [facility] discharge ) - Patient Data Vitals - Most Recent: Last Vital Signs Temp 36.6 C 04/23/20 07:00 Pulse 86 04/23/20 07:56 Resp 16 04/23/20 07:00 BP 164/68 H 04/23/20 07:59 Pulse Ox 95 04/23/20 07:00 Weight - Most Recent: 56.699 kg I&O - Last 24 hours: Intake & Output 04/22/20 04/23/20 04/23/20 22:59 06:59 14:59 Intake Total 600 500 Output Total 250 Balance 350 500 Lab Results - Last 24 hrs: Laboratory Results - last 24 hr 04/21/20 04/22/20 04/22/20 Range/Units 06:00 11:38 16:30 WBC (4.5-11.0) K/uL RBC (3.30-5.50) M/uL Hgb (12.0-15.0) g/dL Hct (36.0-48.0) % MCV (80-98) fL MCH (27-31) pg MCHC (32-36) % Plt Count (150-400) K/uL POC Glucose 161 H 107 H (74-106) MG/DL Blood Type O POSITIVE Gel Antibody Screen Negative Crossmatch See Detail 04/22/20 04/23/20 04/23/20 Range/Units 20:45 04:00 07:34 WBC 4.9 (4.5-11.0) K/uL RBC 3.03 L (3.30-5.50) M/uL Hgb 9.2 L D (12.0-15.0) g/dL Hct 28.4 L (36.0-48.0) % MCV 94 (80-98) fL MCH 30 (27-31) pg MCHC 32 (32-36) % Plt Count 101 L (150-400) K/uL POC Glucose 167 H 113 H (74-106) MG/DL Blood Type Gel Antibody Screen Crossmatch Med Orders - Current: Current Medications Acetaminophen (Tylenol) 650 mg PO Q4H PRN PRN Reason: Pain/Fever Last Admin: 04/23/20 07:56 Dose: 650 mg Documented by: Albuterol (Proventil Neb Soln) 2.5 mg NEB Q4H PRN PRN Reason: Shortness Of Breath/wheezing Allopurinol (Zyloprim) 200 mg PO DAILY [facility] Last Admin: 04/23/20 07:59 Dose: 200 mg Documented by: Anastrozole (Arimidex) 1 mg PO DAILY [facility] Last Admin: 04/23/20 08:00 Dose: 1 mg Documented by: Atorvastatin Calcium (Lipitor) 40 mg PO ACDINNER [facility] Last Admin: 04/22/20 16:51 Dose: 40 mg Documented by: Bandage/Support Products ( Nasal Gm Video) 1 applic NASBOTH BID [facility] Stop: 04/27/20 21:01 Last Admin: 04/23/20 08:01 Dose: 1 applic Documented by: Carvedilol (Coreg) 12.5 mg PO BIDMEALS [facility] Last Admin: 04/23/20 07:56 Dose: 12.5 mg Documented by: Dextrose (Glutose 15) 15 gm PO Q2H PRN PRN Reason: Hypoglycemia Dextrose/Water (Dextrose 50% In Water) 50 ml IV Q1H PRN PRN Reason: Hypoglycemia Docusate Sodium (Colace) 100 mg PO DAILY [facility] Last Admin: 04/23/20 08:01 Dose: Not Given Documented by: Enoxaparin Sodium (Lovenox) 30 mg SUBCUT DAILY [facility] Last Admin: 04/22/20 08:32 Dose: 30 mg Documented by: Hydromorphone HCl (Dilaudid) 0.5 mg IVPUSH Q2H PRN PRN Reason: Pain (severe 7-10) Last Admin: 04/21/20 11:21 Dose: 0.5 mg Documented by: Insulin Glargine (Lantus Solostar) 14 units SUBCUT DAILY [facility] Last Admin: 04/23/20 08:00 Dose: 14 units Documented by: Lisinopril (Prinivil) 10 mg PO DAILY [facility] Last Admin: 04/23/20 07:59 Dose: 10 mg Documented by: Lorazepam (Ativan) 0.5 mg IVPUSH Q4H PRN PRN Reason: Nausea/Vomiting Magnesium Hydroxide (Milk Of Magnesia) 30 ml PO Q6H PRN PRN Reason: Stool Softener Last Admin: 04/22/20 08:31 Dose: 30 ml Documented by: Melatonin (Melatonin) 9 mg PO BEDTIME [facility] Last Admin: 04/22/20 23:29 Dose: 9 mg Documented by: Metformin HCl (Glucophage) 1,000 mg PO BIDMEALS [facility] Last Admin: 04/23/20 07:56 Dose: 1,000 mg Documented by: Ondansetron HCl (Zofran) 4 mg IVPUSH Q6H PRN PRN Reason: Nausea/Vomiting Ondansetron HCl (Zofran Odt) 4 mg PO Q6H PRN PRN Reason: Nausea able to take PO Oxycodone HCl (Oxycodone) 5 - 10 mg PO Q4H PRN PRN Reason: Pain Last Admin: 04/23/20 07:55 Dose: 5 mg Documented by: Paroxetine HCl (Paxil) 30 mg PO DAILY [facility] Last Admin: 04/23/20 08:00 Dose: 30 mg Documented by: Senna/Docusate Sodium (Senna Plus) 1 tab PO BID PRN PRN Reason: Constipation Last Admin: 04/22/20 19:49 Dose: 1 tab Documented by: Sodium Chloride (Saline Flush) 10 ml FLUSH ASDIRECTED PRN PRN Reason: Keep Vein Open Last Admin: 04/20/20 13:04 Dose: 10 ml Documented by: Discontinued Medications Hydrocodone Bitart/Acetaminophen ([place] 325-5 Mg) 2 tab PO Q4H PRN PRN Reason: Pain (moderate 4-6) Bacitracin (Bacitracin Oint 1 Gm) 1 dose TOP ONETIME ONE Stop: 04/20/20 13:00 Last Admin: 04/20/20 13:05 Dose: 1 dose Documented by: Bacitracin (Bacitracin Oint 1 Gm) Confirm Administered Dose 1 dose .ROUTE .STK- MED ONE Stop: 04/20/20 15:59 Last Admin: 04/20/20 16:16 Dose: 1 dose Documented by: Bupivacaine HCl/Epinephrine Bitart ([place] 0.5%/Epinephrine 1:200,000) Confirm Administered Dose 0 ml .ROUTE .STK-MED ONE Stop: 04/20/20 13:54 Fentanyl (Sublimaze) Confirm Administered Dose 100 mcg .ROUTE .STK-MED ONE Stop: 04/20/20 13:36 Hydromorphone HCl (Dilaudid) 0.25 mg IVPUSH ONETIME ONE Stop: 04/20/20 12:10 Last Admin: 04/20/20 12:21 Dose: 0.25 mg Documented by: Hydromorphone HCl (Dilaudid) 0.5 mg IVPUSH ONETIME ONE Stop: 04/20/20 13:00 Last Admin: 04/20/20 13:04 Dose: 0.5 mg Documented by: Cefazolin Sodium/Dextrose 2 gm (/ Premix) 50 mls @ 100 mls/hr IV ONETIME ONE Stop: 04/20/20 13:41 Last Admin: 04/20/20 14:43 Dose: 100 mls/hr Documented by: Sodium Chloride (Normal Saline) 1,000 mls @ 125 mls/hr IV ASDIRECTED [facility] Last Admin: 04/20/20 14:30 Dose: 125 mls/hr Documented by: Sodium Chloride (Normal Saline) 1,000 mls @ 125 mls/hr IV ASDIRECTED [facility] Last Admin: 04/21/20 10:35 Dose: 125 mls/hr Documented by: Cefazolin Sodium/Dextrose 1 gm (/ Premix) 50 mls @ 200 mls/hr IV Q8H [facility] Stop: 04/21/20 06:14 Last Admin: 04/21/20 05:41 Dose: 200 mls/hr Documented by: Insulin Human Lispro (Humalog) 0 unit SUBCUT QIDACANDBED [facility]; Protocol Last Admin: 04/21/20 12:03 Dose: 1 units Documented by: Midazolam HCl (Versed 1 Mg/Ml) Confirm Administered Dose 2 mg .ROUTE .STK-MED ONE Stop: 04/20/20 13:36 Morphine Sulfate (Morphine) 2 mg SUBCUT Q1H PRN PRN Reason: Breakthrough Pain Oxycodone/Acetaminophen (Percocet 325-5 Mg) 1 tab PO Q4H PRN PRN Reason: Pain (severe 7-10) Propofol (Diprivan 20 Ml) Confirm Administered Dose 200 mg .ROUTE .STK-MED ONE Stop: 04/20/20 13:35 Propofol (Diprivan 20 Ml) 200 mg .ROUTE .STK-MED ONE Stop: 04/20/20 14:01 Tramadol HCl (Ultram) 50 mg PO Q6H PRN PRN Reason: Pain (mild 1-3) *Q Meaningful Use (DIS) - VTE *Q VTE Pharmacological Contraindications *Q: Patient Scheduled Surgery
[2020-04-23 10:33] VITALS: BP 116/49; PULSE 82
== END 2020-04-23 12:10 | DRG 536 ==
LOC: JP.ED 12:07 → JP.SDS 15:02 → JP.MS 16:04
PROVIDERS: ADMIT Specialist; ATTEND Internal Medicine
PROC: 30233N1 Transfusion of Nonautologous Red Blood Cells into Peripheral Vein, Percutaneous Approach (ICD-10-PCS; principal; 2020-04-21)
DX: S72.144A Nondisplaced intertrochanteric fracture of right femur, initial encounter for closed fracture (principal); D62 Acute posthemorrhagic anemia; I25.10 Atherosclerotic heart disease of native coronary artery without angina pectoris; H54.7 Unspecified visual loss; E78.00 Pure hypercholesterolemia, unspecified; I10 Essential (primary) hypertension; F41.9 Anxiety disorder, unspecified; J45.909 Unspecified asthma, uncomplicated; K57.90 Diverticulosis of intestine, part unspecified, without perforation or abscess without bleeding; Z86.010 Personal history of colon polyps; M19.90 Unspecified osteoarthritis, unspecified site; E10.9 Type 1 diabetes mellitus without complications; S01.01XA Laceration without foreign body of scalp, initial encounter; Z20.828 Contact with and (suspected) exposure to other viral communicable diseases; Z90.10 Acquired absence of unspecified breast and nipple; Z91.048 Other nonmedicinal substance allergy status; Z91.09 Other allergy status, other than to drugs and biological substances; Z79.82 Long term (current) use of aspirin; Z79.4 Long term (current) use of insulin; Z79.899 Other long term (current) drug therapy; I25.2 Old myocardial infarction; Z85.3 Personal history of malignant neoplasm of breast; W01.0XXA Fall on same level from slipping, tripping and stumbling without subsequent striking against object, initial encounter; Y92.009 Unspecified place in unspecified non-institutional (private) residence as the place of occurrence of the external cause
CPT/HCPCS: 12001 ×2; 27245; 27425; 36415; 51702; 73502 ×2; 80048; 85027; 93005; 93010; 96374; 96376; 99284; 99285; C1713 ×2; C1776; J0690; J1170 ×2; J2250; J2704 ×2; J3010; J7030; U0002; 36430; 82962; 85018; 86850; 86900; 86901; 86920; 86922; 97110-GP; 97162-GP; 97165-GO; 97530-GP; 99222-AI; 99232; 99239; A9270-GY; J1650; J1815; J1815-GY; J3490; P9016

== ENCOUNTER 2021-05-25 10:23 | Day surgery (SDC) | payer MEDICARE, OTHER ==
[~2021-05-25 10:23] MED LIST: Propofol 200 MG/20 ML SDV ONE; fentaNYL 100 MCG/2 ML SDV ONE
[2021-05-25] MEDS: Sodium Chloride 0.9% 1,000 ML IV SCH (11:06)
[2021-05-25] MEDS ORDERED: Propofol 200 MG/20 ML SDV ONE (13:22)
[2021-05-25 14:37] VITALS: BP 133/50; PULSE 78
--- NOTE | 2021-06-18 13:02 | OR ---
DATE OF PROCEDURE: 05/25/2021 SURGEON: Moe Jacques MD PROCEDURES PERFORMED: 1. Esophagogastroduodenoscopy. 2. Colonoscopy. FINDINGS: 1. Biopsy of GE junction concerning for reflux disease (biopsied in all 4 quadrants). 2. Ascending colon polyp #1, approximately 5 mm, completely removed using hot snare wire device. 3. Ascending colon polyp #2, approximately 5 mm, completely removed using hot snare wire device. 4. Ascending colon polyp #3, approximately 8 mm, completely removed using hot snare wire device. 5. Transverse colon polyp #1, approximately 3 mm, completely removed using cold biopsy forceps. 6. Transverse colon polyp #2, approximately 3 mm, completely removed using cold biopsy forceps. 7. Descending colon polyp #1, approximately 8 mm, completely removed using endoscopic mucosal resection. 8. Descending colon polyp #2, approximately 3 mm, completely removed using cold biopsy forceps. COMPLICATIONS: None. MANAGER PLUMBING: None. ANESTHESIA: MAC. PREOPERATIVE DIAGNOSIS: Screening colonoscopy. POSTOPERATIVE DIAGNOSIS: Screening colonoscopy. RISKS: Risks, benefits, alternatives, and limitations including, but not limited to infection, bleeding, perforation, false positives, and false negatives were explained to the patient, and they wished to proceed. PROCEDURE IN DETAIL: The patient was placed in the left lateral decubitus position. Digital rectal exam was performed without abnormality. Scope was introduced and advanced atraumatically to the ileocecal valve. A photo was taken of the appendiceal orifice. The scope was brought back to the ascending, transverse, descending colon, and retroflexed. The aforementioned polyps were all identified and completely removed. No evidence of old or new blood. No masses. All the polyps removed as described above. The prep was acceptable. Approximately 90% of the luminal surface could be seen. Greater than 8 minutes was spent removing the scope. The patient tolerated the procedure well. Moe Jacques MD /[id number]
== END 2021-05-25 14:35 | disposition home or self-care (01) ==
LOC: JP.SDS 10:23
PROVIDERS: ATTEND Surgery
DX: Z12.11 Encounter for screening for malignant neoplasm of colon (principal); D12.2 Benign neoplasm of ascending colon; D12.3 Benign neoplasm of transverse colon; D12.4 Benign neoplasm of descending colon; E78.5 Hyperlipidemia, unspecified; I12.9 Hypertensive chronic kidney disease with stage 1 through stage 4 chronic kidney disease, or unspecified chronic kidney disease; E11.22 Type 2 diabetes mellitus with diabetic chronic kidney disease; N18.30 Chronic kidney disease, stage 3 unspecified; J45.909 Unspecified asthma, uncomplicated; Z91.048 Other nonmedicinal substance allergy status
CPT/HCPCS: 43239; 45380; 45385; 45390; 88305; J2704; J3010; J7030

== ENCOUNTER 2022-05-21 22:35 | Observation (INO) | payer MEDICARE, OTHER ==
[2022-05-21 23:15] LABS: ESTIMATED GFR 38 mL/min (>60)
[2022-05-22] MEDS ORDERED: Melatonin 3 MG Tab PO PRN (01:06)
[2022-05-22] MEDS ORDERED: Ondansetron 4 MG/2 ML SDV IV PRN (01:06)
[2022-05-22] MEDS ORDERED: Magnesium Hydroxide 400 MG/5 ML Susp 30 ML Cup PO PRN (01:06)
[2022-05-22] MEDS ORDERED: Ondansetron 4 MG Tab.DIS PO PRN (01:06)
[2022-05-22] MEDS ORDERED: Glucagon,Human Recombinant 1 MG Vial IM PRN (02:17)
[2022-05-22] MEDS ORDERED: 50% Dextrose in Water 50 ML Syringe IVPUSH PRN (02:17)
[2022-05-22] MEDS ORDERED: Furosemide 20 MG Tab PO SCH (02:30)
[2022-05-22] MEDS ORDERED: Sodium Chloride 0.9% 1,000 ML IV SCH (05:30)
[2022-05-22] MEDS: Carvedilol 12.5 MG Tab PO SCH ×2 (08:17→16:52)
[2022-05-22] MEDS: Aspirin 81 MG Tab.Chew PO SCH (08:21)
[2022-05-22] MEDS: Lisinopril 5 MG Tab PO SCH (08:21)
[2022-05-22] MEDS: PARoxetine 20 MG Tab PO SCH (08:22)
[2022-05-22] MEDS: Potassium Chloride 20 MEQ Tab.ER PO SCH (08:22)
[2022-05-22] MEDS: Cholecalciferol (Vitamin D3) 25 MCG Tab PO SCH (08:22)
[2022-05-22] MEDS: Allopurinol 100 MG Tab PO SCH (08:22)
[2022-05-22] MEDS: Anastrozole 1 MG Tab PO SCH (08:22)
[2022-05-22 08:58] LABS: ESTIMATED GFR 46 mL/min (>60)
[2022-05-22] MEDS ORDERED: Insulin Glargine,Human Rec. Analog 100 Units/ML 3 ML Pen SUBCUT SCH (09:00)
[2022-05-22] MEDS ORDERED: Piperacillin/Tazobactam 2.25 GM in Sodium Chloride 0.9% 50 ML IV SCH ×4 (12:00)
[2022-05-22] MEDS: Piperacillin/Tazobactam/Dext 2.25 GM in Premix Bag 1 BAG IV SCH ×2 (12:44→17:01)
[2022-05-22] MEDS: Insulin Lispro 100 Unit/ML 3 ML KwikPen SUBCUT SCH ×2 (16:53→20:59)
[2022-05-22] MEDS: Pantoprazole 40 MG Tab.CR PO SCH ×2 (21:00→21:03)
[2022-05-23] MEDS: Piperacillin/Tazobactam/Dext 2.25 GM in Premix Bag 1 BAG IV SCH ×4 (00:13→17:10)
[2022-05-23] MEDS: Insulin Lispro 100 Unit/ML 3 ML KwikPen SUBCUT SCH ×4 (07:36→21:12)
[2022-05-23] MEDS: Aspirin 81 MG Tab.Chew PO SCH ×2 (10:26→13:51)
[2022-05-23] MEDS: Anastrozole 1 MG Tab PO SCH ×2 (10:26→13:51)
[2022-05-23] MEDS: PARoxetine 20 MG Tab PO SCH ×2 (10:26→13:51)
[2022-05-23] MEDS: Potassium Chloride 20 MEQ Tab.ER PO SCH ×2 (10:26→13:51)
[2022-05-23] MEDS: Cholecalciferol (Vitamin D3) 25 MCG Tab PO SCH ×2 (10:27→14:41)
[2022-05-23] MEDS: Allopurinol 100 MG Tab PO SCH ×2 (10:27→13:52)
[2022-05-23] MEDS: Lisinopril 5 MG Tab PO SCH ×2 (10:28→13:52)
[2022-05-23] MEDS: Carvedilol 12.5 MG Tab PO SCH ×2 (10:29→13:51)
[2022-05-23] MEDS: FUROSEMIDE 20 MG PO SCH (14:41)
[2022-05-23] MEDS: CARVEDILOL 12.5 MG PO SCH (17:12)
[2022-05-23] MEDS: Pantoprazole 40 MG Tab.CR PO SCH (21:13)
[2022-05-24] MEDS: Piperacillin/Tazobactam/Dext 2.25 GM in Premix Bag 1 BAG IV SCH ×3 (00:55→11:57)
[2022-05-24 04:53] LABS: ESTIMATED GFR 33 mL/min (>60)
[2022-05-24] MEDS: Insulin Lispro 100 Unit/ML 3 ML KwikPen SUBCUT SCH ×4 (07:50→21:28)
[2022-05-24] MEDS: CARVEDILOL 12.5 MG PO SCH ×2 (08:24→17:31)
[2022-05-24] MEDS: ALLOPURINOL 100 MG PO SCH (08:25)
[2022-05-24] MEDS: ANASTROZOLE 1 MG PO SCH (08:25)
[2022-05-24] MEDS: Aspirin 81 MG EC **PTOM PO SCH (08:26)
[2022-05-24] MEDS: FUROSEMIDE 20 MG PO SCH (08:26)
[2022-05-24] MEDS: PAROXETINE 20 MG PO SCH (08:27)
[2022-05-24] MEDS: POTASSIUM CHLORIDE 20 MEQ PO SCH (08:27)
[2022-05-24] MEDS: LISINOPRIL 5 MG PO SCH (08:28)
[2022-05-24] MEDS: Cholecalciferol (Vitamin D3) 25 MCG Tab PO SCH (08:29)
[2022-05-24] MEDS: INSULIN GLARGINE HUMAN REC ANALOG 100 UNIT/ML SUBCUT SCH (08:29)
[2022-05-24] MEDS ORDERED: ASPIRIN 81 MG PO SCH (09:00)
[2022-05-24] MEDS ORDERED: INSULIN GLARGINE HUMAN REC ANALOG 100 UNIT/ML SUBCUT SCH (09:00)
[2022-05-24] MEDS: Pantoprazole 40 MG Tab.CR PO SCH (21:29)
[2022-05-25 04:58] LABS: ESTIMATED GFR 28 mL/min (>60)
[2022-05-25] MEDS: Insulin Lispro 100 Unit/ML 3 ML KwikPen SUBCUT SCH ×4 (07:34→21:18)
[2022-05-25] MEDS: CARVEDILOL 12.5 MG PO SCH ×2 (07:37→17:05)
[2022-05-25] MEDS: PAROXETINE 20 MG PO SCH (08:25)
[2022-05-25] MEDS: ANASTROZOLE 1 MG PO SCH (08:25)
[2022-05-25] MEDS: POTASSIUM CHLORIDE 20 MEQ PO SCH (08:26)
[2022-05-25] MEDS: ALLOPURINOL 100 MG PO SCH (08:26)
[2022-05-25] MEDS: Aspirin 81 MG EC **PTOM PO SCH (08:26)
[2022-05-25] MEDS: INSULIN GLARGINE HUMAN REC ANALOG 100 UNIT/ML SUBCUT SCH (08:28)
[2022-05-25] MEDS: LISINOPRIL 5 MG PO SCH (08:33)
[2022-05-25] MEDS: Cholecalciferol (Vitamin D3) 25 MCG Tab PO SCH (08:34)
[2022-05-25] MEDS: Sodium Chloride 0.9% 1,000 ML IV SCH (12:45)
[2022-05-25] MEDS: Pantoprazole 40 MG Tab.CR PO SCH (21:18)
[2022-05-26 05:08] LABS: ESTIMATED GFR 35 mL/min (>60)
[2022-05-26] MEDS: Insulin Lispro 100 Unit/ML 3 ML KwikPen SUBCUT SCH ×4 (08:17→22:02)
[2022-05-26] MEDS: CARVEDILOL 12.5 MG PO SCH ×2 (08:43→16:37)
[2022-05-26] MEDS: PAROXETINE 20 MG PO SCH (08:43)
[2022-05-26] MEDS: Aspirin 81 MG EC **PTOM PO SCH (08:44)
[2022-05-26] MEDS: POTASSIUM CHLORIDE 20 MEQ PO SCH (08:44)
[2022-05-26] MEDS: ANASTROZOLE 1 MG PO SCH (08:44)
[2022-05-26] MEDS: Cholecalciferol (Vitamin D3) 25 MCG Tab PO SCH (08:46)
[2022-05-26] MEDS: LISINOPRIL 5 MG PO SCH (08:46)
[2022-05-26] MEDS: ALLOPURINOL 100 MG PO SCH (08:46)
[2022-05-26] MEDS: INSULIN GLARGINE HUMAN REC ANALOG 100 UNIT/ML SUBCUT SCH (08:50)
[2022-05-26] MEDS: Sodium Chloride 0.9% 1,000 ML IV SCH (14:43)
[2022-05-26] MEDS: Pantoprazole 40 MG Tab.CR PO SCH (22:01)
[2022-05-27] MEDS: Insulin Lispro 100 Unit/ML 3 ML KwikPen SUBCUT SCH ×4 (07:47→21:47)
[2022-05-27] MEDS: CARVEDILOL 12.5 MG PO SCH ×2 (08:50→17:43)
[2022-05-27] MEDS: ANASTROZOLE 1 MG PO SCH (08:51)
[2022-05-27] MEDS: Aspirin 81 MG EC **PTOM PO SCH (08:51)
[2022-05-27] MEDS: POTASSIUM CHLORIDE 20 MEQ PO SCH (08:52)
[2022-05-27] MEDS: FUROSEMIDE 20 MG PO SCH (08:53)
[2022-05-27] MEDS: PAROXETINE 20 MG PO SCH (08:53)
[2022-05-27] MEDS: Cholecalciferol (Vitamin D3) 25 MCG Tab PO SCH (08:54)
[2022-05-27] MEDS: LISINOPRIL 5 MG PO SCH (08:54)
[2022-05-27] MEDS: ALLOPURINOL 100 MG PO SCH (08:56)
[2022-05-27] MEDS: INSULIN GLARGINE HUMAN REC ANALOG 100 UNIT/ML SUBCUT SCH (09:01)
[2022-05-27 09:11] LABS: HBSAG SCREEN Negative (Negative); HCV AB <0.1 s/co ratio (0.0-0.9); HEP A AB, IGM Negative (Negative); HEP B CORE AB, IGM Negative (Negative)
[2022-05-27] MEDS: Pantoprazole 40 MG Tab.CR PO SCH (21:48)
[2022-05-28 04:12] LABS: ANA DIRECT Negative (Negative)
[2022-05-28 04:55] LABS: ESTIMATED GFR 35 mL/min (>60)
[2022-05-28] MEDS: Insulin Lispro 100 Unit/ML 3 ML KwikPen SUBCUT SCH ×4 (08:07→21:22)
[2022-05-28] MEDS: CARVEDILOL 12.5 MG PO SCH ×2 (08:15→17:16)
[2022-05-28] MEDS: ANASTROZOLE 1 MG PO SCH (08:16)
[2022-05-28] MEDS: Aspirin 81 MG EC **PTOM PO SCH (08:16)
[2022-05-28] MEDS: PAROXETINE 20 MG PO SCH (08:17)
[2022-05-28] MEDS: POTASSIUM CHLORIDE 20 MEQ PO SCH (08:17)
[2022-05-28] MEDS: FUROSEMIDE 20 MG PO SCH (08:17)
[2022-05-28] MEDS: ALLOPURINOL 100 MG PO SCH (08:18)
[2022-05-28] MEDS: LISINOPRIL 5 MG PO SCH (08:18)
[2022-05-28] MEDS: Cholecalciferol (Vitamin D3) 25 MCG Tab PO SCH (08:19)
[2022-05-28] MEDS: INSULIN GLARGINE HUMAN REC ANALOG 100 UNIT/ML SUBCUT SCH (09:18)
[2022-05-28] MEDS ORDERED: Iopamidol 612 MG/ML 100 ML Bottle IV PRN (09:48)
[2022-05-28] MEDS ORDERED: Sodium Chloride 0.9% 50 ML IV SCH (10:00)
[2022-05-28] MEDS: Pantoprazole 40 MG Tab.CR PO SCH (21:22)
[2022-05-29] MEDS: Insulin Lispro 100 Unit/ML 3 ML KwikPen SUBCUT SCH ×4 (07:36→21:14)
[2022-05-29] MEDS: CARVEDILOL 12.5 MG PO SCH ×2 (08:04→17:53)
[2022-05-29] MEDS: ANASTROZOLE 1 MG PO SCH (08:05)
[2022-05-29] MEDS: Aspirin 81 MG EC **PTOM PO SCH (08:06)
[2022-05-29] MEDS: POTASSIUM CHLORIDE 20 MEQ PO SCH (08:07)
[2022-05-29] MEDS: FUROSEMIDE 20 MG PO SCH (08:07)
[2022-05-29] MEDS: INSULIN GLARGINE HUMAN REC ANALOG 100 UNIT/ML SUBCUT SCH (08:08)
[2022-05-29] MEDS: LISINOPRIL 5 MG PO SCH (08:10)
[2022-05-29] MEDS: PAROXETINE 20 MG PO SCH (08:10)
[2022-05-29] MEDS: Cholecalciferol (Vitamin D3) 25 MCG Tab PO SCH (08:12)
[2022-05-29] MEDS: ALLOPURINOL 100 MG PO SCH (08:14)
[2022-05-29] MEDS: Pantoprazole 40 MG Tab.CR PO SCH (20:53)
[2022-05-30 05:10] LABS: ESTIMATED GFR 30 mL/min (>60)
[2022-05-30] MEDS: Insulin Lispro 100 Unit/ML 3 ML KwikPen SUBCUT SCH ×2 (07:36→11:48)
[2022-05-30] MEDS ORDERED: LORazepam 0.5 MG Tab PO ONE ×2 (09:00→11:35)
[2022-05-30] MEDS: CARVEDILOL 12.5 MG PO SCH (09:47)
[2022-05-30 10:56] VITALS: BP 126/61; PULSE 63
[2022-05-30] MEDS: POTASSIUM CHLORIDE 20 MEQ PO SCH (11:36)
[2022-05-30] MEDS: FUROSEMIDE 20 MG PO SCH (11:37)
[2022-05-30] MEDS: PAROXETINE 20 MG PO SCH (11:37)
[2022-05-30] MEDS: ALLOPURINOL 100 MG PO SCH (11:38)
[2022-05-30] MEDS: Aspirin 81 MG EC **PTOM PO SCH (11:38)
[2022-05-30] MEDS: ANASTROZOLE 1 MG PO SCH (11:39)
[2022-05-30] MEDS: INSULIN GLARGINE HUMAN REC ANALOG 100 UNIT/ML SUBCUT SCH (11:42)
[2022-05-30] MEDS: Cholecalciferol (Vitamin D3) 25 MCG Tab PO SCH (11:46)
[2022-05-30] MEDS: LISINOPRIL 5 MG PO SCH (11:48)
== END 2022-05-30 14:44 | disposition home or self-care (01) ==
LOC: JP.ED 22:35 → INTOOBSV 23:52 → JP.MS 23:52
PROVIDERS: ADMIT Internal Medicine; ATTEND Internal Medicine
DX: R17 Unspecified jaundice (principal); E80.6 Other disorders of bilirubin metabolism; R41.0 Disorientation, unspecified; E10.22 Type 1 diabetes mellitus with diabetic chronic kidney disease; I13.0 Hypertensive heart and chronic kidney disease with heart failure and stage 1 through stage 4 chronic kidney disease, or unspecified chronic kidney disease; I50.9 Heart failure, unspecified; N18.9 Chronic kidney disease, unspecified; E78.00 Pure hypercholesterolemia, unspecified; I47.1 Supraventricular tachycardia; J45.909 Unspecified asthma, uncomplicated; F41.9 Anxiety disorder, unspecified; F32.A Depression, unspecified; M19.90 Unspecified osteoarthritis, unspecified site; K80.20 Calculus of gallbladder without cholecystitis without obstruction; I08.3 Combined rheumatic disorders of mitral, aortic and tricuspid valves; J90 Pleural effusion, not elsewhere classified; G93.89 Other specified disorders of brain; Z86.59 Personal history of other mental and behavioral disorders; Z79.82 Long term (current) use of aspirin; Z79.899 Other long term (current) drug therapy; Z86.16 Personal history of COVID-19; Z98.890 Other specified postprocedural states; Z87.891 Personal history of nicotine dependence; Z88.8 Allergy status to other drugs, medicaments and biological substances; Z96.641 Presence of right artificial hip joint; Z90.49 Acquired absence of other specified parts of digestive tract; Z20.822 Contact with and (suspected) exposure to COVID-19
CPT/HCPCS: 36415; 70450; 74177; 74181; 76705; 80048; 80053; 80074; 81001; 82140; 82247; 82248; 82390; 82728; 82947; 83516; 83550; 83690; 84075; 84145; 84450; 84460; 85018; 85025; 85027; 85610; 86038; 86140; 86255; 86304; 93306; 96361; 96365; 96366; 96376; 97110; 97116; 97129; 97162; 97165; 97530; 97535; 99217; 99220; 99226; 99285; A9270; G0378; J1815; J2543; J3490; J7030; Q9967; U0002

== ENCOUNTER 2022-07-07 12:52 | Emergency (ER) | payer MEDICARE, OTHER ==
[2022-07-07 14:15] VITALS: BP 150/54; PULSE 73
== END 2022-07-07 14:29 | disposition home or self-care (01) ==
LOC: JP.ED 12:52
DX: M25.561 Pain in right knee (principal); M25.551 Pain in right hip; E78.00 Pure hypercholesterolemia, unspecified; E10.22 Type 1 diabetes mellitus with diabetic chronic kidney disease; I12.9 Hypertensive chronic kidney disease with stage 1 through stage 4 chronic kidney disease, or unspecified chronic kidney disease; N18.9 Chronic kidney disease, unspecified; I25.2 Old myocardial infarction; M10.9 Gout, unspecified; M19.90 Unspecified osteoarthritis, unspecified site; Z91.018 Allergy to other foods; Z91.048 Other nonmedicinal substance allergy status; Z88.8 Allergy status to other drugs, medicaments and biological substances; Z79.82 Long term (current) use of aspirin; Z79.899 Other long term (current) drug therapy; Z79.4 Long term (current) use of insulin; Z86.16 Personal history of COVID-19
CPT/HCPCS: 73502-26-RT; 73502-RT; 99284

== ENCOUNTER 2022-09-01 08:22 | Emergency (ER) | payer MEDICARE, OTHER ==
[2022-09-01 08:51] VITALS: PULSE 81
[2022-09-01] MEDS ORDERED: Sodium Chloride 0.9% 10 ML Syringe FLUSH PRN (09:14)
[2022-09-01] MEDS ORDERED: HYDROmorphone 0.5 MG/0.5 ML Syringe IVPUSH ONE (09:15)
[2022-09-01] MEDS ORDERED: Lidocaine 5% 700 MG Patch TRDERM ONE (11:40)
[2022-09-01 11:41] VITALS: BP 176/76
== END 2022-09-01 12:09 | disposition home or self-care (01) ==
LOC: JP.ED 08:22
DX: M62.50 Muscle wasting and atrophy, not elsewhere classified, unspecified site (principal); I73.9 Peripheral vascular disease, unspecified; I12.9 Hypertensive chronic kidney disease with stage 1 through stage 4 chronic kidney disease, or unspecified chronic kidney disease; E10.22 Type 1 diabetes mellitus with diabetic chronic kidney disease; N18.9 Chronic kidney disease, unspecified; I25.2 Old myocardial infarction; J45.909 Unspecified asthma, uncomplicated; M19.90 Unspecified osteoarthritis, unspecified site; D64.89 Other specified anemias; I25.10 Atherosclerotic heart disease of native coronary artery without angina pectoris; Z95.2 Presence of prosthetic heart valve; Z88.8 Allergy status to other drugs, medicaments and biological substances; Z91.013 Allergy to seafood; Z91.048 Other nonmedicinal substance allergy status; Z79.82 Long term (current) use of aspirin; Z79.899 Other long term (current) drug therapy
CPT/HCPCS: 72170; 72170-26; 73552-26-LT; 73552-LT; 93926-26; 93926-LT; 93971-26-LT; 93971-LT; 96374; 99284; 99284-25; A9270-GY; J1170; J3490

== ENCOUNTER 2023-10-26 06:43 | Day surgery (SDC) | payer MEDICARE, OTHER ==
[2023-10-26] MEDS: Sodium Chloride 0.9% 10 ML Syringe FLUSH PRN (07:27)
[2023-10-26 08:38] VITALS: BP 156/56; PULSE 81
== END 2023-10-26 10:03 | disposition home or self-care (01) ==
LOC: JP.SDS 06:43
PROVIDERS: ATTEND Ophthalmology
DX: H25.812 Combined forms of age-related cataract, left eye (principal)
CPT/HCPCS: 66984; J3490; V2632